=== PATIENT | male | born 1955 | race Caucasian/White ===

== ENCOUNTER 2025-03-22 21:14 | Inpatient (IN) ==
[2025-03-22 21:55] LABS: Hematocrit (blood only) 41.8 % (42.0-52.0); Hemoglobin 14.2 g/dl (14.0-18.0); Immature Granulocytes # (auto) 0.02 K/uL (0.01-0.20); Immature Granulocytes % (auto) 0.6 %; Mean Corpuscular Hemoglobin 28.3 pg (25.0-34.0); Mean Corpuscular Volume 83.4 fL (80.0-100.0); Platelet Count 114 K/uL (130-400); RDW Standard Deviation 40.8 fL (36.4-46.3); Red Blood Count 5.01 M/uL (4.70-6.10); White Blood Count 3.20 K/ul (4.8-10.8)
[2025-03-22] MEDS: SODIUM CHLORIDE 0.9% 1,000 ML IV ONE (21:57)
--- NOTE | 2025-03-22 22:13 | Emergency Department Note ---
Impression & Plan Generalized weakness, Dizziness, Fall, Elevated CPK, Lymphopenia, Thrombocytopenia, Elevated AST (SGOT) ED Provider Note NAME: ANDRE NJ AGE: 70 SEX: M : 1955 ARRIVES VIA: Ambulance INFORMANT: Patient ED PROVIDER(S): Jayson Gray MD CHIEF COMPLAINT: Fall, generalized weakness, dizziness PLAN: Disposition: Admit MEDICAL DECISION MAKING: The patient pleasant 70-year-old gentleman with a past medical history of hypertension who presents to the Emergency Department via EMS accompanied by his brother for evaluation of generalized weakness and dizziness/unsteadiness that has been worsening over the past several weeks culminating in a fall today where he felt he lost his balance and fell onto his knees outside and could not get up and so laid on the ground for over an hour. Patient was able to ultimately call family ember and his brother found him and called EMS. Patient denies any fevers, chills, cough congestion, chest pain or shortness of breath. He reports he has been having worsening dizziness/imbalance with generalized weakness but has yet to contact his primary care provider to reassess this. On evaluation the patient in no acute distress, afebrile with heart in the 110s and vital signs otherwise stable. He appears clinically dry. He has minor abrasions of bilateral knees and mild swelling of the anterior aspect of the left knee without gross deformity. Exhibits no focal neurologic deficits. EKG without overt acute ischemia. CXR negative for acute cardiopulmonary process per my personal preliminary review/interpretation. X-ray of the left knee also negative for fracture or dislocation per my preliminary independent interpretation. WBC 3.2K with lymphopenia 0.29K as well as thrombocytopenia with platelets of 114K without prior for comparison. Hemoglobin within normal limits. Chemistry without metabolic acidosis with bicarbonate of 22. Creatinine 1.45 without prior for comparison. Total bili 1.2 and AST 46, mildly above normal. CPK 320 in setting of the patient's downtime. High styptic 0.3-0.7, within normal limits. Lipase is normal. TSH within normal limits. UA with 1+ ketones consistent with the patient's clinically dry appearance. Otherwise no evidence of urinary infection. Medical alcohol was undetectable. Lyme screen was negative. Anaplasma and Babesia smear were negative. DNA testing is pending. CT of the head, C-spine and abdomen pelvis were obtained and per my preliminary independent or potation were negative for acute abnormalities. Given the patient's lymphopenia, thrombocytopenia and mild transaminitis in the setting of family report of tick exposures where his brother has been diagnosed with Lyme after having a tick and the patient also reports removing a tick 2 months ago we will proceed with empiric treatment for anaplasmosis at this time. Case was discussed with Dr. [facility] who will evaluate the patient for admission. CT imaging subsequently finalized and no acute abnormalities noted. Further management per admitting team. Triage Nursing notes reviewed and agree them. Prior/external medical records reviewed Vital Signs: reviewed Differential diagnosis: Infection, dehydration, metabolic abnormality, hypo/hyperglycemia, electrolyte disturbance, anemia, hypoxia, cardiac sources, intracerebral event, toxicologic, neurologic, as well as other pathologies. ER treatment provided: See below. Diagnostics interpreted by me: ECG: Sinus tachycardia, 112 bpm, first-degree AV block, no overt ST elevation or depression, QTc 442, QRS 88. Cardiac Monitoring: An order for continuous cardiac monitoring was placed and demonstrated Sinus tachycardia, 112 bpm, first-degree AV block, no ectopy. Laboratory studies: See below Imaging studies: See below Consultation(s): Case was discussed with Dr. [facility] who will evaluate the patient for admission. HPI: Per MDM. ROS: See above HPI for pertinent positives & negatives. A total of 10 systems reviewed and were otherwise negative. VITALS:See Below PHYSICAL EXAMINATION: GENERAL: Awake, alert, fatigued-appearing, in no distress, BMI 38.6. HENT: Normocephalic, atraumatic. Oropharynx with dry mucous membranes and otherwise unremarkable. EYES: Normal conjunctiva. Sclera non-icteric. EOMI. No nystamgus. PEARRL. NECK: Supple. No nuchal rigidity. FROM. No JVD. No midline tenderness to palpation or step-offs. RESPIRATORY: Clear to auscultation. CARDIAC: Tachycardic rate, normal rhythm. Extremities warm and well perfused. Pulses equal. ABDOMEN: Soft, non-distended. No tenderness to palpation. No rebound or guarding. No masses. MUSCULOSKELETAL: Chest examination reveals no tenderness. The back is symmetrical on inspection without obvious abnormality. No midline tenderness to palpation or step-offs. There is no CVA tenderness to palpation. Mild swelling of the left knee anteriorly without gross deformity. Full range of motion intact. Minor abrasions of bilateral knees. LOWER EXTREMITIES: Calves are equal size bilaterally and non-tender. No edema. No discoloration. NEURO: Cranial nerves II-XII grossly intact. 5/5 strength and SILT x 4 extremities. Cerebellar function intact including ceorei-dx-zdid, alternating palms, hojs-si-[id number]. SKIN: No rash or jaundice noted. Jayson Gray MD Past Med/Surg History Problem List (Updated 03/23/25 @ 01:47 by Jayson Gray MD) Elevated AST (SGOT) (Acute) Thrombocytopenia (Acute) Lymphopenia (Acute) Elevated CPK (Acute) Fall (Acute) Dizziness (Acute) Generalized weakness (Acute) Medical History Hypertension Social History Smoking Status: Former smoker Preferred Language: Persian Feels Safe at Home: Yes Home Meds Home Medications Medication Instructions Recorded Confirmed Lisinopril (Zestril) 20 mg PO DAILY ##0 03/12/07 Results & Data (ED) Vital Signs Vital Signs - 24 hr 03/22/25 21:14 03/22/25 21:26 03/22/25 21:31 Temperature 36.8 C Temperature Source Oral Pulse Rate 115 H 112 H Pulse Rate [Finger] 112 H Pulse Rhythm Pulse Rhythm [Finger] Regular Pulse Strength [Finger] Normal Respiratory Rate 18 18 Respiratory Effort / Characteristics Non-Labored Spontaneous Non-Labored Spontaneous Respiratory Depth Normal Normal Respiratory Pattern Regular Regular Blood Pressure 131/98 Blood Pressure [Right Arm] 131/98 Blood Pressure Mean 109 Blood Pressure Mean [Right Arm] 109 Blood Pressure Position [Right Arm] Lying Pulse Oximetry 96 94 Oxygen Delivery Method Room Air Room Air Sepsis Recent Fever Within 48 Hours No Sepsis New/Unexplained Change in Mental Status No Sepsis Action Taken by Nursing No Action Required 03/22/25 21:45 03/22/25 22:00 03/22/25 23:00 Temperature Temperature Source Pulse Rate 103 H Pulse Rate [Finger] 113 H 93 H Pulse Rhythm Regular Pulse Rhythm [Finger] Regular Regular Pulse Strength [Finger] Respiratory Rate 19 18 20 Respiratory Effort / Characteristics Non-Labored Spontaneous Non-Labored Spontaneous Respiratory Depth Normal Normal Respiratory Pattern Regular Regular Blood Pressure Blood Pressure [Right Arm] 108/72 147/82 H Blood Pressure Mean Blood Pressure Mean [Right Arm] 84 103 Blood Pressure Position [Right Arm] Pulse Oximetry 92 93 95 Oxygen Delivery Method Room Air Room Air Room Air Sepsis Recent Fever Within 48 Hours Sepsis New/Unexplained Change in Mental Status Sepsis Action Taken by Nursing 03/23/25 00:00 Temperature Temperature Source Pulse Rate Pulse Rate [Finger] 101 H Pulse Rhythm Pulse Rhythm [Finger] Regular Pulse Strength [Finger] Respiratory Rate 19 Respiratory Effort / Characteristics Non-Labored Spontaneous Respiratory Depth Normal Respiratory Pattern Regular Blood Pressure Blood Pressure [Right Arm] 118/79 Blood Pressure Mean Blood Pressure Mean [Right Arm] 92 Blood Pressure Position [Right Arm] Pulse Oximetry 95 Oxygen Delivery Method Room Air Sepsis Recent Fever Within 48 Hours Sepsis New/Unexplained Change in Mental Status Sepsis Action Taken by Nursing Laboratory Data Attestation: I reviewed the patient's lab results. 03/22/25 20:05 03/22/25 20:05 Lab Results 03/22/25 03/22/25 03/22/25 Range/Units 20:05 22:41 23:19 WBC 3.20 L (4.8-10.8) K/ul RBC 5.01 (4.70-6.10) M/uL Hgb 14.2 (14.0-18.0) g/dl Hct 41.8 L (42.0-52.0) % MCV 83.4 (80.0-100.0) fL MCH 28.3 (25.0-34.0) pg MCHC 34.0 (32.0-36.0) g/dL RDW Std Deviation 40.8 (36.4-46.3) fL RDW Coeff of Elena 13.4 (11.5-14.5) % Plt Count 114 L (130-400) K/uL MPV 11.9 (9.4-12.4) fL Immature Gran % (Auto) 0.6 % Neut % (Auto) 74.4 % Lymph % (Auto) 9.1 % Mclean % (Auto) 15.6 % Eos % (Auto) 0.0 % Baso % (Auto) 0.3 % Neut # (Auto) 2.38 (1.40-6.50) K/uL Lymph # (Auto) 0.29 L (1.20-3.40) K/uL Mclean # (Auto) 0.50 (0.11-0.59) K/uL Eos # (Auto) 0.00 (0.00-0.50) K/uL Baso # (Auto) 0.01 (0.00-0.20) K/uL Immature Gran # (Auto) 0.02 (0.01-0.20) K/uL PT 12.2 H (9.0-12.0) Seconds INR 1.2 H (0.9-1.1) Sodium 132 L (136-145) mmol/L Potassium 3.9 (3.5-5.1) mmol/L Chloride 94 L (98-107) mmol/L Carbon Dioxide 22 (21-32) mmol/L Anion Gap 16 H (3-11) BUN 25 H (6-23) mg/dl Creatinine 1.45 H (0.6-1.4) mg/dl Est Cr Clr Drug Dosing 63.0 ml/min eGFR 51.52 BUN/Creatinine Ratio 17.2 (10-20) Glucose 197 H (70-99(Fasting)) mg/dl Calcium 9.7 (8.6-10.3) mg/dl Phosphorus 3.5 (2.5-4.9) mg/dl Magnesium 1.9 (1.7-2.4) mg/dl Total Bilirubin 1.2 H (0.2-1.0) mg/dl AST 46 H (13-39) U/L ALT 43 (7-52) U/L Alkaline Phosphatase 63 (34-104) U/L Total Creatine Kinase 320 H (30-223) U/L Troponin I High Sens 13.7 (0-20) pg/ml Total Protein 7.8 (6.0-8.3) gm/dl Albumin 4.0 (3.4-5.0) gm/dl Globulin 3.8 (2.5-4.0) gm/dl Albumin/Globulin Ratio 1.1 (0.9-2) Lipase 64 (11-82) U/L TSH 2.612 (0.300-4.500) uIu/ml Urine Color Yellow Urine Appearance Clear (Clear) Urine pH 5.0 (4.5-7.5) Ur Specific [place] 1.020 (1.000-1.030) Urine Protein 1+ H (Negative) Urine Glucose (UA) 3+ H (Negative) Urine Ketones 1+ H (Negative) Urine Blood 2+ H (Negative) Urine Nitrite Negative (Negative) Urine Bilirubin Negative (Negative) Urine Urobilinogen Negative (Negative) Ur Leukocyte Esterase Negative (Negative) Urine WBC (Auto) 0-5 (0-5) /hpf Urine RBC (Auto) 0-2 (0-2) /hpf U Hyaline Cast (Auto) 3-5 H (0-2) /lpf U Epithel Cells (Auto) 0-2 (0-2) /hpf Urine Bacteria (Auto) None Seen (None Seen) Urine Comment Ethyl Alcohol mg/dL < 10.0 (<10.0) mg/dl Anaplasma Smear See Comment Babesia Smear See Comment Lyme Disease Screen Negative (Negative) Administered Medications Discontinued Medications Sodium Chloride (Nss) 1,000 mls @ 999 mls/hr IV .Q1H1M ONE Stop: 03/22/25 22:45 Last Infusion: 03/22/25 22:35 Dose: Infused Documented By: Admin: 03/22/25 21:57 Dose: 999 mls/hr Documented By: JOSE Acetaminophen (Ofirmev) 1,000 mg in 100 mls @ 400 mls/hr IV NOW STA Stop: 03/23/25 00:35 Last Admin: 03/23/25 01:19 Dose: 400 mls/hr Documented By: JOSE Imaging Data Radiologist's Impression: Chest X-Ray 03/22/25 21:45 Exam(s): XR CXR 1 VIEW EXAM: XR Chest, 1 View CLINICAL HISTORY: Reason for exam: Chest pain, nonspecific. TECHNIQUE: Frontal view of the chest. COMPARISON: No relevant prior studies available. FINDINGS: Lungs: No consolidation. No overt edema. Pleural space: No pleural effusion. No pneumothorax. Heart: Unremarkable. No cardiomegaly. IMPRESSION: No acute cardiopulmonary abnormality. Electronically signed by: Jean Silveira MD 03/22/25 23:22 PM Abdomen/Pelvis CT 03/22/25 23:03 Exam(s): CT ABDOMEN + PELVIS Without Contrast EXAM: CT Abdomen and Pelvis Without Intravenous Contrast CLINICAL HISTORY: Reason for exam: weakness fall. TECHNIQUE: Axial computed tomography images of the abdomen and pelvis without intravenous contrast. CTDI is 35.08 mGy and DLP is 2985.56 mGy-cm. Automated exposure control was utilized for the study. A dose lowering technique was utilized adhering to the principles of ALARA. COMPARISON: No relevant prior studies available. FINDINGS: Lung bases: Unremarkable. No mass. No consolidation. ABDOMEN: Liver: Hepatomegaly. Gallbladder and bile ducts: Unremarkable. No calcified stones. No ductal dilation. Pancreas: Unremarkable. No ductal dilation. Spleen: Splenomegaly. Adrenals: Unremarkable. No mass. Kidneys and ureters: Unremarkable. No obstructing stones. No hydronephrosis. Stomach and bowel: Unremarkable. No obstruction. No mucosal thickening. PELVIS: Appendix: No findings to suggest acute appendicitis. Bladder: Mild distention of the urinary bladder. No stones. Reproductive: Unremarkable as visualized. ABDOMEN and PELVIS: Intraperitoneal space: Unremarkable. No free air. No significant fluid collection. Bones/joints: No acute fracture. No dislocation. Soft tissues: Unremarkable. Vasculature: Unremarkable. No abdominal aortic aneurysm. Lymph nodes: Unremarkable. No enlarged lymph nodes. IMPRESSION: No acute findings in the abdomen or pelvis. Hepatosplenomegaly Electronically signed by: Hector Michael MD 03/23/25 00:[address] 03/22/25 23:03 Exam(s): CT C SPINE EXAM: CT Cervical Spine Without Intravenous Contrast CLINICAL HISTORY: Reason for exam: weakness fall. OTHER: Other Notes: L sided pain, N/V TECHNIQUE: Axial computed tomography images of the cervical spine without intravenous contrast. CTDI is 35.08 mGy and DLP is 2985.56 mGy-cm. Automated exposure control was utilized for the study. A dose lowering technique was utilized adhering to the principles of ALARA. COMPARISON: No relevant prior studies available. FINDINGS: No fracture or subluxations are noted. The vertebral body heights and alignment are preserved. No prevertebral soft tissue swelling. Note is made of multilevel cervical spondylosis with varying degrees of central canal and foramina stenoses. IMPRESSION: 1. No cervical fractures. 2. Cervical spondylosis with varying degrees of central canal and foramina stenoses. Electronically signed by: Hector Michael MD 03/23/25 00:[address] 03/22/25 23:03 Exam(s): CT HEAD Without Contrast EXAM: CT Head Without Intravenous Contrast CLINICAL HISTORY: Reason for exam: weakness fall. TECHNIQUE: Axial computed tomography images of the head/brain without intravenous contrast. CTDI is 35.08 mGy and DLP is 2985.56 mGy-cm. Automated exposure control was utilized for the study. A dose lowering technique was utilized adhering to the principles of ALARA. COMPARISON: No relevant prior studies available. FINDINGS: Brain: Unremarkable. No hemorrhage. No significant white matter disease. No edema. Ventricles: Unremarkable. No ventriculomegaly. Bones/joints: Unremarkable. No acute fracture. Soft tissues: Unremarkable. Sinuses: Unremarkable as visualized. No acute sinusitis. Mastoid air cells: Unremarkable as visualized. No mastoid effusion. IMPRESSION: Normal head/brain CT. Electronically signed by: Hector Michael MD 03/23/25 00:30 AM Knee X-Ray 03/22/25 23:07 Exam(s): XR LEFT KNEE, 3 views EXAM: XR Left Knee, 3 Views CLINICAL HISTORY: Reason for exam: pain fall. TECHNIQUE: Three views of the left knee. COMPARISON: No relevant prior studies available. FINDINGS: Bones/joints: Unremarkable. No acute fracture. No dislocation. Soft tissues: Unremarkable. IMPRESSION: Normal left knee x-rays. Electronically signed by: Hector Michael MD 03/23/25 00:27 AM Discharge Plan Visit Data Chief Complaint: Weakness Stated Complaint: FALL, WEAKNESS ED Provider: Jayson Gray Discharge Problem: Generalized weakness, Dizziness, Fall, Elevated CPK, Lymphopenia, Thrombocytopenia, Elevated AST (SGOT) Patient Disposition: Admitted As Inpatient Condition: Fair Forms [facility] Prescriptions Prescriptions: No Action Lisinopril (Zestril) 20 MG tablet 20 mg PO DAILY Qty: 0 Referrals Referrals: PCP,NO [Physician] - Discharge Problem: Fall Qualifiers: Encounter type: initial encounter Qualified Code(s): W19.XXXA - Unspecified fall, initial encounter
[2025-03-22 22:14] LABS: Alanine Aminotransferase 43.0 U/L (7-52); Albumin Globulin Ratio 1.1 (0.9-2); Albumin Level 4.0 gm/dl (3.4-5.0); Alkaline Phosphatase 63.0 U/L (34-104); Anion Gap 16.0 (3-11); Bilirubin,Total 1.2 mg/dl (0.2-1.0); Blood Urea Nitrogen 25.0 mg/dl (6-23); Calcium 9.7 mg/dl (8.6-10.3); Carbon Dioxide 22.0 mmol/L (21-32); Chloride 94.0 mmol/L (98-107); Creatine Kinase 320.0 U/L (30-223); Creatinine Clr Calc Pharmacy 63.0 ml/min; Globulin 3.8 gm/dl (2.5-4.0); Glucose 197.0 mg/dl (70-99(Fasting)); Lipase 64.0 U/L (11-82); Magnesium 1.9 mg/dl (1.7-2.4); Potassium 3.9 mmol/L (3.5-5.1); Sodium 132.0 mmol/L (136-145); Total Protein 7.8 gm/dl (6.0-8.3)
[2025-03-22 22:22] LABS: INR 1.2 (0.9-1.1); Prothrombin Time 12.2 Seconds (9.0-12.0)
[2025-03-22 22:30] LABS: Thyroid Stimulating Hormone 2.612 uIu/ml (0.300-4.500)
[2025-03-22 22:58] LABS: Appearance Urine Clear (Clear); Bacteria Urine Automated None Seen (None Seen); Epithelial Cell Urine Auto 0-2 /hpf (0-2); Glucose Urine UA 3+ (Negative); RBC Urine Automated 0-2 /hpf (0-2); WBC Urine Automated 0-5 /hpf (0-5)
--- NOTE | 2025-03-22 23:23 | XRay Report ---
Exam(s): XR CXR 1 VIEW EXAM: XR Chest, 1 View CLINICAL HISTORY: Reason for exam: Chest pain, nonspecific. TECHNIQUE: Frontal view of the chest. COMPARISON: No relevant prior studies available. FINDINGS: Lungs: No consolidation. No overt edema. Pleural space: No pleural effusion. No pneumothorax. Heart: Unremarkable. No cardiomegaly. IMPRESSION: No acute cardiopulmonary abnormality. Electronically signed by: Jean Silveira MD 03/22/25 23:22 PM
--- NOTE | 2025-03-23 00:27 | XRay Report ---
Exam(s): XR LEFT KNEE, 3 views EXAM: XR Left Knee, 3 Views CLINICAL HISTORY: Reason for exam: pain fall. TECHNIQUE: Three views of the left knee. COMPARISON: No relevant prior studies available. FINDINGS: Bones/joints: Unremarkable. No acute fracture. No dislocation. Soft tissues: Unremarkable. IMPRESSION: Normal left knee x-rays. Electronically signed by: Hector Michael MD 03/23/25 00:27 AM
--- NOTE | 2025-03-23 00:31 | CT Scan Report ---
Exam(s): CT HEAD Without Contrast EXAM: CT Head Without Intravenous Contrast CLINICAL HISTORY: Reason for exam: weakness fall. TECHNIQUE: Axial computed tomography images of the head/brain without intravenous contrast. CTDI is 35.08 mGy and DLP is 2985.56 mGy-cm. Automated exposure control was utilized for the study. A dose lowering technique was utilized adhering to the principles of ALARA. COMPARISON: No relevant prior studies available. FINDINGS: Brain: Unremarkable. No hemorrhage. No significant white matter disease. No edema. Ventricles: Unremarkable. No ventriculomegaly. Bones/joints: Unremarkable. No acute fracture. Soft tissues: Unremarkable. Sinuses: Unremarkable as visualized. No acute sinusitis. Mastoid air cells: Unremarkable as visualized. No mastoid effusion. IMPRESSION: Normal head/brain CT. Electronically signed by: Hector Michael MD 03/23/25 00:30 AM
--- NOTE | 2025-03-23 00:35 | CT Scan Report ---
Exam(s): CT ABDOMEN + PELVIS Without Contrast EXAM: CT Abdomen and Pelvis Without Intravenous Contrast CLINICAL HISTORY: Reason for exam: weakness fall. TECHNIQUE: Axial computed tomography images of the abdomen and pelvis without intravenous contrast. CTDI is 35.08 mGy and DLP is 2985.56 mGy-cm. Automated exposure control was utilized for the study. A dose lowering technique was utilized adhering to the principles of ALARA. COMPARISON: No relevant prior studies available. FINDINGS: Lung bases: Unremarkable. No mass. No consolidation. ABDOMEN: Liver: Hepatomegaly. Gallbladder and bile ducts: Unremarkable. No calcified stones. No ductal dilation. Pancreas: Unremarkable. No ductal dilation. Spleen: Splenomegaly. Adrenals: Unremarkable. No mass. Kidneys and ureters: Unremarkable. No obstructing stones. No hydronephrosis. Stomach and bowel: Unremarkable. No obstruction. No mucosal thickening. PELVIS: Appendix: No findings to suggest acute appendicitis. Bladder: Mild distention of the urinary bladder. No stones. Reproductive: Unremarkable as visualized. ABDOMEN and PELVIS: Intraperitoneal space: Unremarkable. No free air. No significant fluid collection. Bones/joints: No acute fracture. No dislocation. Soft tissues: Unremarkable. Vasculature: Unremarkable. No abdominal aortic aneurysm. Lymph nodes: Unremarkable. No enlarged lymph nodes. IMPRESSION: No acute findings in the abdomen or pelvis. Hepatosplenomegaly Electronically signed by: Hector Michael MD 03/23/25 00:34 AM
--- NOTE | 2025-03-23 00:36 | CT Scan Report ---
Exam(s): CT C SPINE EXAM: CT Cervical Spine Without Intravenous Contrast CLINICAL HISTORY: Reason for exam: weakness fall. OTHER: Other Notes: L sided pain, N/V TECHNIQUE: Axial computed tomography images of the cervical spine without intravenous contrast. CTDI is 35.08 mGy and DLP is 2985.56 mGy-cm. Automated exposure control was utilized for the study. A dose lowering technique was utilized adhering to the principles of ALARA. COMPARISON: No relevant prior studies available. FINDINGS: No fracture or subluxations are noted. The vertebral body heights and alignment are preserved. No prevertebral soft tissue swelling. Note is made of multilevel cervical spondylosis with varying degrees of central canal and foramina stenoses. IMPRESSION: 1. No cervical fractures. 2. Cervical spondylosis with varying degrees of central canal and foramina stenoses. Electronically signed by: Hector Michael MD 03/23/25 00:36 AM
--- NOTE | 2025-03-23 01:03 | History & Physical Report ---
Date of Service March 23, 2025 Assessment & Plan (1) Severe sepsis: Plan: Assessment and plan below following discussion of case with ED provider and reviewing patient history/pertinent normal/abnormal diagnostic test results. Severe sepsis SIRS plus ARF Possible tickborne infection Leukopenia and thrombocytopenia possibly from tickborne infection hx nonobstructive CAD second-degree AV Mobitz type I block hypertension, stable hyperlipidemia, on statin Rx COPD as per records, not in acute exacerbation MASLD, no overt decompensation DM2 on oral medications, suboptimal control as of recent hemoglobin A1c of 7.9 last December 2024 Bladder cancer status post surgery past tobacco abuse Admit to med/tele CS, Doxycycline Follow tick panel results Monitor creatinine response to IVF, hold lisinopril/home diuretic Rx until creatinine back to baseline Basal bolus insulin, ISS goal of 110-140, carb count coverage PT OT eval once medically stable DVT prophylaxis. SCDs Re: Thrombocytopenia Full code Text document was generated using etrigg voice recognition software. It may contain grammatical or spelling errors. Kindly contact undersigned for clarification of any documentation item in question. History of Present Illness Chief Complaint: Bilateral leg weakness Primary Care Provider: Francia Martínez MD History obtained from patient and records. Medical history significant for nonobstructive CAD, second-degree AV Mobitz type I block, hypertension, hyperlipidemia, COPD as per records, mild MEHREEN, MASLD, DM2 on oral medications, bladder cancer status post surgery, Lyme disease status post Rx, GERD, past tobacco abuse. Patient noted worsening bilateral leg weakness over the last few weeks. Not sure about tick bites. Lightheadedness described as dizziness without headache symptoms. Denies chest pain, SOB, cough symptoms, abdominal pain, syncope. No unusual headache or neck or back pain. Patient having trouble standing up for a long time. IV doxycycline administered at the ER. 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 Allergies Allergy/AdvReac Type Severity Reaction Status Date / Time empagliflozin Allergy Mild Rash Verified 03/23/25 06:12 [From Jardiance] piroxicam AdvReac Mild Diarrhea Verified 03/23/25 06:12 iv dye Allergy Mild rash Uncoded 03/23/25 06:11 Home Medications Medication Instructions Recorded Confirmed Type Lisinopril (Zestril) 20 mg PO DAILY ##0 03/12/07 History albuterol sulfate 90 mcg/actuation inhalation 03/23/25 History aerosol inhaler budesonide-formoterol HFA 160 inhalation AMHS 03/23/25 History mcg-4.5 mcg/actuation aerosol inhaler furosemide 40 mg tablet 40 mg DAILY 03/23/25 History lisinopril 40 mg tablet 40 mg DAILY 03/23/25 History metformin 500 mg tablet,extended 500 mg PO BID 03/23/25 History release 24 hr metoprolol tartrate 25 mg tablet 25 mg 03/23/25 History potassium chloride 10 mEq 10 meq PO [id number] 03/23/25 History tablet,extended release rosuvastatin 20 mg tablet 20 mg DAILY 03/23/25 History Past Med/Surg History Problem List (Updated 03/23/25 @ 07:04 by Miguel Angel Kaplan MD) Severe sepsis Elevated AST (SGOT) (Acute) Thrombocytopenia (Acute) Lymphopenia (Acute) Elevated CPK (Acute) Fall (Acute) Dizziness (Acute) Generalized weakness (Acute) Medical History Hypertension Social History Smoking Status: Former smoker Hx Alcohol Use: No Hx Substance Use: Yes Preferred Language: Lithuanian Communication Ability: Effective Director External Communications Required: No Beliefs That Will Affect Care: None Current Living Situation: Alone Feels Safe at Home: Yes Safety Concerns: Feels Safe At This Time Assistive Devices: Cane and Glasses Review of Systems Review of Systems: As per HPI, all other systems reviewed and negative Physical Exam Physical Exam: GENERAL: Comfortable, obese, slightly anxious, no respiratory distress SKIN: Normal color, warm HEENT: Alopecia, bespectacled, pink palpebral conjunctivae, no ptosis, dry buccal mucosa NECK : Supple, no tenderness CHEST : CTA, no tenderness HEART : Tachycardic, no obvious murmurs ABDOMEN: Some distention, nontender EXTREMITIES : Bilateral LE swelling without tenderness, crusty wound LLE, palpable pulses, no other conspicuous deformities noted NEUROLOGIC : Coherent, no facial asymmetry, no other gross focality Results & Data Results & Data Vital Signs (Past 12 Hours) Vital Signs Temp Pulse Pulse Resp BP BP Pulse Ox 03/23/25 00:00 101 H 19 118/79 95 03/22/25 23:00 93 H 20 147/82 H 95 03/22/25 22:00 113 H 18 108/72 93 03/22/25 21:45 103 H 19 92 03/22/25 21:31 112 H 18 131/98 94 03/22/25 21:26 112 H 03/22/25 21:14 36.8 C 115 H 18 131/98 96 O2 Del Method 03/23/25 00:00 Room Air 03/22/25 23:00 Room Air 03/22/25 22:00 Room Air 03/22/25 21:45 Room Air 03/22/25 21:31 Room Air 03/22/25 21:26 03/22/25 21:14 Room Air Laboratory Results Laboratory Results WBC 3.20 K/ul (4.8-10.8) L 03/22/25 20:05 RBC 5.01 M/uL (4.70-6.10) 03/22/25 20:05 Hgb 14.2 g/dl (14.0-18.0) 03/22/25 20:05 Hct 41.8 % (42.0-52.0) L 03/22/25 20:05 MCV 83.4 fL (80.0-100.0) 03/22/25 20:05 MCH 28.3 pg (25.0-34.0) 03/22/25 20:05 MCHC 34.0 g/dL (32.0-36.0) 03/22/25 20:05 RDW Std Deviation 40.8 fL (36.4-46.3) 03/22/25 20:05 RDW Coeff of Elena 13.4 % (11.5-14.5) 03/22/25 20:05 Plt Count 114 K/uL (130-400) L 03/22/25 20:05 MPV 11.9 fL (9.4-12.4) 03/22/25 20:05 Immature Gran % (Auto) 0.6 % 03/22/25 20:05 Neut % (Auto) 74.4 % 03/22/25 20:05 Lymph % (Auto) 9.1 % 03/22/25 20:05 [place] % (Auto) 15.6 % 03/22/25 20:05 Eos % (Auto) 0.0 % 03/22/25 20:05 Baso % (Auto) 0.3 % 03/22/25 20:05 Neut # (Auto) 2.38 K/uL (1.40-6.50) 03/22/25 20:05 Lymph # (Auto) 0.29 K/uL (1.20-3.40) L 03/22/25 20:05 [place] # (Auto) 0.50 K/uL (0.11-0.59) 03/22/25 20:05 Eos # (Auto) 0.00 K/uL (0.00-0.50) 03/22/25 20:05 Baso # (Auto) 0.01 K/uL (0.00-0.20) 03/22/25 20:05 Immature Gran # (Auto) 0.02 K/uL (0.01-0.20) 03/22/25 20:05 PT 12.2 Seconds (9.0-12.0) H 03/22/25 20:05 INR 1.2 (0.9-1.1) H 03/22/25 20:05 Sodium 132 mmol/L (136-145) L 03/22/25 20:05 Potassium 3.9 mmol/L (3.5-5.1) 03/22/25 20:05 Chloride 94 mmol/L (98-107) L 03/22/25 20:05 Carbon Dioxide 22 mmol/L (21-32) 03/22/25 20:05 Anion Gap 16 (3-11) H 03/22/25 20:05 BUN 25 mg/dl (6-23) H 03/22/25 20:05 Creatinine 1.45 mg/dl (0.6-1.4) H 03/22/25 20:05 Est Cr Clr Drug Dosing 63.0 ml/min 03/22/25 20:05 eGFR 51.52 03/22/25 20:05 BUN/Creatinine Ratio 17.2 (10-20) 03/22/25 20:05 Glucose 197 mg/dl (70-99(Fasting)) H 03/22/25 20:05 Calcium 9.7 mg/dl (8.6-10.3) 03/22/25 20:05 Phosphorus 3.5 mg/dl (2.5-4.9) 03/22/25 20:05 Magnesium 1.9 mg/dl (1.7-2.4) 03/22/25 20:05 Total Bilirubin 1.2 mg/dl (0.2-1.0) H 03/22/25 20:05 AST 46 U/L (13-39) H 03/22/25 20:05 ALT 43 U/L (7-52) 03/22/25 20:05 Alkaline Phosphatase 63 U/L (34-104) 03/22/25 20:05 Total Creatine Kinase 320 U/L (30-223) H 03/22/25 20:05 Troponin I High Sens 13.7 pg/ml (0-20) 03/22/25 20:05 Total Protein 7.8 gm/dl (6.0-8.3) 03/22/25 20:05 Albumin 4.0 gm/dl (3.4-5.0) 03/22/25 20:05 Globulin 3.8 gm/dl (2.5-4.0) 03/22/25 20:05 Albumin/Globulin Ratio 1.1 (0.9-2) 03/22/25 20:05 Lipase 64 U/L (11-82) 03/22/25 20:05 TSH 2.612 uIu/ml (0.300-4.500) 03/22/25 20:05 Urine Color Yellow 03/22/25 22:41 Urine Appearance Clear (Clear) 03/22/25 22: Urine pH 5.0 (4.5-7.5) 03/22/25 22:41 Ur Specific [place] 1.020 (1.000-1.030) 03/22/25 22: Urine Protein 1+ (Negative) H 03/22/25 22: Urine Glucose (UA) 3+ (Negative) H 03/22/25 22: Urine Ketones 1+ (Negative) H 03/22/25 22: Urine Blood 2+ (Negative) H 03/22/25 22:41 Urine Nitrite Negative (Negative) 03/22/25 22: Urine Bilirubin Negative (Negative) 03/22/25 22: Urine Urobilinogen Negative (Negative) 03/22/25 22: Ur Leukocyte Esterase Negative (Negative) 03/22/25 22:41 Urine WBC (Auto) 0-5 /hpf (0-5) 03/22/25 22:41 Urine RBC (Auto) 0-2 /hpf (0-2) 03/22/25 22:41 U Hyaline Cast (Auto) 3-5 /lpf (0-2) H 03/22/25 22:41 U Epithel Cells (Auto) 0-2 /hpf (0-2) 03/22/25 22:41 Urine Bacteria (Auto) None Seen (None Seen) 03/22/25 22:41 Urine Comment 03/22/25 22:41 Ethyl Alcohol mg/dL < 10.0 mg/dl (<10.0) 03/22/25 23:19 Anaplasma Smear See Comment 03/22/25 20:05 Babesia Smear See Comment 03/22/25 20:05 Lyme Disease Screen Negative (Negative) 03/22/25 23:19 Impressions Chest X-Ray 03/22/25 21:45 Exam(s): XR CXR 1 VIEW EXAM: XR Chest, 1 View CLINICAL HISTORY: Reason for exam: Chest pain, nonspecific. TECHNIQUE: Frontal view of the chest. COMPARISON: No relevant prior studies available. FINDINGS: Lungs: No consolidation. No overt edema. Pleural space: No pleural effusion. No pneumothorax. Heart: Unremarkable. No cardiomegaly. IMPRESSION: No acute cardiopulmonary abnormality. Electronically signed by: Jean Silveira MD 03/22/25 23:22 PM Abdomen/Pelvis CT 03/22/25 23:03 Exam(s): CT ABDOMEN + PELVIS Without Contrast EXAM: CT Abdomen and Pelvis Without Intravenous Contrast CLINICAL HISTORY: Reason for exam: weakness fall. TECHNIQUE: Axial computed tomography images of the abdomen and pelvis without intravenous contrast. CTDI is 35.08 mGy and DLP is 2985.56 mGy-cm. Automated exposure control was utilized for the study. A dose lowering technique was utilized adhering to the principles of ALARA. COMPARISON: No relevant prior studies available. FINDINGS: Lung bases: Unremarkable. No mass. No consolidation. ABDOMEN: Liver: Hepatomegaly. Gallbladder and bile ducts: Unremarkable. No calcified stones. No ductal dilation. Pancreas: Unremarkable. No ductal dilation. Spleen: Splenomegaly. Adrenals: Unremarkable. No mass. Kidneys and ureters: Unremarkable. No obstructing stones. No hydronephrosis. Stomach and bowel: Unremarkable. No obstruction. No mucosal thickening. PELVIS: Appendix: No findings to suggest acute appendicitis. Bladder: Mild distention of the urinary bladder. No stones. Reproductive: Unremarkable as visualized. ABDOMEN and PELVIS: Intraperitoneal space: Unremarkable. No free air. No significant fluid collection. Bones/joints: No acute fracture. No dislocation. Soft tissues: Unremarkable. Vasculature: Unremarkable. No abdominal aortic aneurysm. Lymph nodes: Unremarkable. No enlarged lymph nodes. IMPRESSION: No acute findings in the abdomen or pelvis. Hepatosplenomegaly Electronically signed by: Hector Michael MD 03/23/25 00:[address] 03/22/25 23:03 Exam(s): CT C SPINE EXAM: CT Cervical Spine Without Intravenous Contrast CLINICAL HISTORY: Reason for exam: weakness fall. OTHER: Other Notes: L sided pain, N/V TECHNIQUE: Axial computed tomography images of the cervical spine without intravenous contrast. CTDI is 35.08 mGy and DLP is 2985.56 mGy-cm. Automated exposure control was utilized for the study. A dose lowering technique was utilized adhering to the principles of ALARA. COMPARISON: No relevant prior studies available. FINDINGS: No fracture or subluxations are noted. The vertebral body heights and alignment are preserved. No prevertebral soft tissue swelling. Note is made of multilevel cervical spondylosis with varying degrees of central canal and foramina stenoses. IMPRESSION: 1. No cervical fractures. 2. Cervical spondylosis with varying degrees of central canal and foramina stenoses. Electronically signed by: Hector Michael MD 03/23/25 00:[address] 03/22/25 23:03 Exam(s): CT HEAD Without Contrast EXAM: CT Head Without Intravenous Contrast CLINICAL HISTORY: Reason for exam: weakness fall. TECHNIQUE: Axial computed tomography images of the head/brain without intravenous contrast. CTDI is 35.08 mGy and DLP is 2985.56 mGy-cm. Automated exposure control was utilized for the study. A dose lowering technique was utilized adhering to the principles of ALARA. COMPARISON: No relevant prior studies available. FINDINGS: Brain: Unremarkable. No hemorrhage. No significant white matter disease. No edema. Ventricles: Unremarkable. No ventriculomegaly. Bones/joints: Unremarkable. No acute fracture. Soft tissues: Unremarkable. Sinuses: Unremarkable as visualized. No acute sinusitis. Mastoid air cells: Unremarkable as visualized. No mastoid effusion. IMPRESSION: Normal head/brain CT. Electronically signed by: Hector Michael MD 03/23/25 00:30 AM Knee X-Ray 03/22/25 23:07 Exam(s): XR LEFT KNEE, 3 views EXAM: XR Left Knee, 3 Views CLINICAL HISTORY: Reason for exam: pain fall. TECHNIQUE: Three views of the left knee. COMPARISON: No relevant prior studies available. FINDINGS: Bones/joints: Unremarkable. No acute fracture. No dislocation. Soft tissues: Unremarkable. IMPRESSION: Normal left knee x-rays. Electronically signed by: Hector Michael MD 03/23/25 00:27 AM Diagnostic Findings EKG as per my interpretation :Rate 110, junctional rhythm, no ischemia
[2025-03-23] MEDS: ACETAMINOPHEN 1,000 MG/100 ML VIAL IV STA (01:19)
[2025-03-23] MEDS: LANTUS PER UNIT CHARGE SQ SCH (02:20)
[2025-03-23] MEDS: DOXYCYCLINE HYCLATE 100 MG in DEXTROSE 5% MINI-B 100 ML IV STA (02:26)
[2025-03-23 03:08] LABS: Alanine Aminotransferase 37.0 U/L (7-52); Albumin Globulin Ratio 1.0 (0.9-2); Albumin Level 3.2 gm/dl (3.4-5.0); Alkaline Phosphatase 50.0 U/L (34-104); Anion Gap 11.0 (3-11); Bilirubin,Total 1.0 mg/dl (0.2-1.0); Blood Urea Nitrogen 24.0 mg/dl (6-23); Calcium 8.4 mg/dl (8.6-10.3); Carbon Dioxide 21.0 mmol/L (21-32); Chloride 99.0 mmol/L (98-107); Creatinine Clr Calc Pharmacy 69.2 ml/min; Globulin 3.3 gm/dl (2.5-4.0); Glucose 235.0 mg/dl (70-99(Fasting)); Potassium 3.7 mmol/L (3.5-5.1); Sodium 131.0 mmol/L (136-145); Total Protein 6.5 gm/dl (6.0-8.3)
[2025-03-23 03:11] LABS: Hematocrit (blood only) 35.2 % (42.0-52.0); Hemoglobin 12.0 g/dl (14.0-18.0); Immature Granulocytes # (auto) 0.01 K/uL (0.01-0.20); Immature Granulocytes % (auto) 0.5 %; Mean Corpuscular Hemoglobin 28.1 pg (25.0-34.0); Mean Corpuscular Volume 82.4 fL (80.0-100.0); Platelet Count 101 K/uL (130-400); RDW Standard Deviation 39.8 fL (36.4-46.3); Red Blood Count 4.27 M/uL (4.70-6.10); White Blood Count 2.05 K/ul (4.8-10.8)
[2025-03-23] MEDS: POTASSIUM CHLORIDE 10 MEQ in LACTATED RINGER'S 1,000 ML IV ONE (03:30)
[2025-03-23] MEDS: MAGNESIUM SULFATE / D5W 1 GM/100 ML BAG IV ONE (03:30)
[2025-03-23] MEDS ORDERED: PROMETHAZINE 6.25 MG/50.25 ML BAG IV PRN (03:48)
[2025-03-23] MEDS ORDERED: CARBOHYDRATES FOR HYPOGLYCEMIA PO PRN (05:07)
[2025-03-23] MEDS ORDERED: GLUCOSE 10 TAB/TUBE PO PRN (05:07)
[2025-03-23] MEDS ORDERED: DEXTROSE 50% 50 ML SYRINGE IV PRN (05:07)
[2025-03-23] MEDS ORDERED: GLUCOSE 40% GEL 15 GM TUBE PO PRN (05:07)
[2025-03-23] MEDS ORDERED: GLUCAGON FOR INJ 1 MG VIAL SQ PRN (05:07)
[2025-03-23] MEDS: INSULIN ASPART PER UNIT CHARGE SC SCH (05:56)
[2025-03-23 08:37] LABS: Sodium 134 mmol/L (136-145)
[2025-03-23 08:58] LABS: Creatine Kinase 2335 U/L (30-223)
[2025-03-23] MEDS: METOPROLOL TARTRATE 25 MG TAB PO SCH (10:24)
[2025-03-23] MEDS ORDERED: Nursing to Pharmacy Communication SCH (10:30)
[2025-03-23] MEDS ORDERED: ALBUTEROL HFA 8 GM INHALER INH PRN (12:07)
[2025-03-23] MEDS: LACTATED RINGER'S 1,000 ML IV SCH (12:59)
--- NOTE | 2025-03-23 14:18 | Hospitalist Progress Note ---
Date of Service March 23, 2025 Assessment & Plan (1) Severe sepsis: Plan: Acute rhabdomyolysis Acute kidney injury due to above Generalized weakness --CK:2335 -- Baseline creatinine 1.0 --Cr: 1.4>1.3 Hold statin Continue IV fluids Monitor CK levels PT OT, fall precautions Monitor renal function Avoid nephrotoxic agents as able Hold lisinopril, Lasix, metformin Possible sepsis Leukopenia, thrombocytopenia Suspected tickborne illness Lyme screen negative Peripheral smear showed no signs of intracytoplasmic inclusions Tickborne serology pending -- Blood cultures pending Chest x-ray, UA not suggestive of infection Empirically on doxycycline Monitor CBC Hypertension Hold lisinopril Continue metoprolol Monitor blood pressure DM Type II: Will hold oral diabetic meds Last A1c: 7.9 Continue insulin while hospitalized Monitor blood glucose levels Hyperlipidemia Hold statin due to rhabdo COPD No signs of exacerbation Continue home inhalers Other chronic conditions Nonobstructive CAD Second-degree AV Mobitz type I block MASLD, no overt decompensation Bladder cancer S/P Surgery Past tobacco abuse Continue home medications as able DVT Px: SCDs Re: Thrombocytopenia Code Status Full code Admission and Anticipated Discharge Date Admission Date: March 23, 2025 Subjective Patient is seen and examined at bedside States having generalized weakness Also reports chronic dyspnea on exertion and intermittent dizziness Denies any chest pain, nausea, vomiting, abdominal pain Admits to have some balance issues with ambulation which he attributes to weakness Review of Systems Review of Systems: All systems reviewed & are unremarkable except as noted in Subjective Physical Exam Physical Exam: Physical Exam: Vitals signs as noted above General Appearance:Obese, no apparent distress Head: normocephalic, Atraumatic Eyes: normal inspection, EOMI Neck: supple, Trachea midline Respiratory/Chest: Normal breath sounds, CTA, No accessory muscle use Cardiovascular: S1, S2, No murmur Abdomen/GI:Soft, Non tender, +Protuberant, Bowel sounds present Extremities/Musculoskeletal:normal inspection, 1+ LE edema Neurologic/Psych:AAOX3, grossly no focal neurological deficits Skin: normal color, warm Results & Data Results & Data Vital Signs (Past 12 Hours) Vital Signs Temp Pulse Pulse Resp BP BP BP 03/23/25 12:01 36.8 C 99 H 20 145/80 H 03/23/25 11:31 03/23/25 08:22 37.0 C 114 H 18 138/81 03/23/25 07:28 108 H 03/23/25 04:55 107 H 03/23/25 04:45 03/23/25 04:45 36.5 C 110 H 20 145/84 H 03/23/25 04:24 95 H 16 105/76 03/23/25 03:00 105 H 18 102/66 Pulse Ox O2 Del Method 03/23/25 12:01 94 Room Air 03/23/25 11:31 Room Air 03/23/25 08:22 97 Room Air 03/23/25 07:28 03/23/25 04:55 03/23/25 04:45 Room Air 03/23/25 04:45 98 Room Air 03/23/25 04:24 94 Room Air 03/23/25 03:00 93 Room Air Laboratory Results Short CBC 03/22/25 03/23/25 Range/Units 20:05 02:09 WBC 3.20 L 2.05 L (4.8-10.8) K/ul Hgb 14.2 12.0 L (14.0-18.0) g/dl Hct 41.8 L 35.2 L (42.0-52.0) % Plt Count 114 L 101 L (130-400) K/uL BMP 03/22/25 03/23/25 03/23/25 20:05 02:09 07:29 Sodium 132 L 131 L 134 L Potassium 3.9 3.7 Chloride 94 L 99 Carbon Dioxide 22 21 BUN 25 H 24 H Creatinine 1.45 H 1.32 Glucose 197 H 235 H Calcium 9.7 8.4 L Cardiac Enzymes 03/22/25 03/23/25 Range/Units 20:05 07:29 Total Creatine Kinase 320 H 2335 H (30-223) U/L Liver Function 03/22/25 03/23/25 Range/Units 20:05 02:09 Total Bilirubin 1.2 H 1.0 (0.2-1.0) mg/dl AST 46 H 51 H (13-39) U/L ALT 43 37 (7-52) U/L Alkaline Phosphatase 63 50 (34-104) U/L Albumin 4.0 3.2 L (3.4-5.0) gm/dl Urine 03/22/25 Range/Units 22:41 Urine Color Yellow Urine Appearance Clear (Clear) Urine pH 5.0 (4.5-7.5) Ur Specific [place] 1.020 (1.000-1.030) Urine Protein 1+ H (Negative) Urine Glucose (UA) 3+ H (Negative)
--- NOTE | 2025-03-23 15:50 | Electrocardiogram Report ---
Test Reason : Blood Pressure : */* mmHG Vent. Rate : 112 BPM Atrial Rate : * BPM P-R Int : * ms QRS Dur : 88 ms QT Int : 324 ms P-R-T Axes : * 7 24 degrees QTcB Int : 442 ms Sinus tachycardia with 1st degree AV block Possible Inferior infarct , age undetermined Abnormal ECG Confirmed by Torey Roach ([id number]) on 03/23/2025 3:49:28 PM Referred By: REFERRED SELF Confirmed By: Torey Roach
[2025-03-23] MEDS: ACETAMINOPHEN 500 MG TAB PO PRN (20:00)
[2025-03-23] MEDS: DOXYCYCLINE HYCLATE 100 MG CAP PO SCH (20:01)
[2025-03-24 07:22] LABS: Hematocrit (blood only) 33.8 % (42.0-52.0); Hemoglobin 11.3 g/dl (14.0-18.0); Mean Corpuscular Hemoglobin 27.8 pg (25.0-34.0); Mean Corpuscular Volume 83.3 fL (80.0-100.0); Platelet Count 100 K/uL (130-400); RDW Standard Deviation 40.8 fL (36.4-46.3); Red Blood Count 4.06 M/uL (4.70-6.10); White Blood Count 1.77 K/ul (4.8-10.8)
[2025-03-24 07:23] LABS: Immature Granulocytes # (auto) 0.00 K/uL (0.01-0.20); Immature Granulocytes % (auto) 0.0 %
[2025-03-24 07:27] LABS: Alanine Aminotransferase 45.0 U/L (7-52); Albumin Globulin Ratio 1.2 (0.9-2); Albumin Level 3.3 gm/dl (3.4-5.0); Alkaline Phosphatase 52.0 U/L (34-104); Anion Gap 8.0 (3-11); Bilirubin,Total 0.7 mg/dl (0.2-1.0); Blood Urea Nitrogen 20.0 mg/dl (6-23); Calcium 8.2 mg/dl (8.6-10.3); Carbon Dioxide 24.0 mmol/L (21-32); Chloride 103.0 mmol/L (98-107); Creatine Kinase 1946.0 U/L (30-223); Creatinine Clr Calc Pharmacy 90.1 ml/min; Globulin 2.8 gm/dl (2.5-4.0); Glucose 139.0 mg/dl (70-99(Fasting)); Magnesium 2.0 mg/dl (1.7-2.4); Potassium 3.7 mmol/L (3.5-5.1); Sodium 135.0 mmol/L (136-145); Total Protein 6.1 gm/dl (6.0-8.3)
[2025-03-24] MEDS: FLUTICASONE/VILANTEROL 200/25MCG 14 PUFFS/INHALER INH SCH (08:56)
[2025-03-24] MEDS: ASPIRIN 81 MG ECTAB PO SCH (08:58)
[2025-03-24] MEDS ORDERED: ROSUVASTATIN CALCIUM 20 MG TAB PO SCH (09:00)
[2025-03-24] MEDS: LACTATED RINGER'S 1,000 ML IV SCH (09:13)
--- NOTE | 2025-03-24 15:18 | Hospitalist Progress Note ---
Date of Service March 24, 2025 Assessment & Plan (1) Severe sepsis: Plan: Acute rhabdomyolysis Acute kidney injury due to above Generalized weakness --CK:2335 -- Baseline creatinine 1.0 --Cr: 1.4>1.3>1.0 Hold statin Continue IV fluids Monitor CK levels:2335>1946 PT OT, fall precautions Monitor renal function Avoid nephrotoxic agents as able Hold lisinopril, Lasix, metformin Slowly improving Continue PT OT while hospitalized Possible sepsis Leukopenia, thrombocytopenia Febrile neutropenia Suspected tickborne illness Lyme screen negative Peripheral smear showed no signs of intracytoplasmic inclusions Tickborne serology pending Chest x-ray, UA not suggestive of infection -- Blood cultures: No growth to date Neutropenic precaution Empirically on doxycycline, added Zosyn Monitor CBC Hypertension Hold lisinopril due to MAAME Continue metoprolol Monitor blood pressure DM Type II: Will hold oral diabetic meds Last A1c: 7.9 Continue insulin while hospitalized Monitor blood glucose levels Hyperlipidemia Hold statin due to rhabdo COPD No signs of exacerbation Continue home inhalers Other chronic conditions Nonobstructive CAD Second-degree AV Mobitz type I block MASLD, no overt decompensation Bladder cancer S/P Surgery Past tobacco abuse Continue home medications as able DVT Px: SCDs Re: Thrombocytopenia Code Status Full code Admission and Anticipated Discharge Date Admission Date: March 23, 2025 Subjective Patient is seen and examined at bedside States feeling better today Generalized weakness, balance issues improving Offers no specific complaints today Denies any chest pain, dyspnea, nausea, vomiting, abdominal pain Review of Systems Review of Systems: All systems reviewed & are unremarkable except as noted in Subjective Physical Exam Physical Exam: Physical Exam: Vitals signs as noted above General Appearance:Obese, no apparent distress Head: normocephalic, Atraumatic Eyes: normal inspection, EOMI Neck: supple, Trachea midline Respiratory/Chest: Normal breath sounds, CTA, No accessory muscle use Cardiovascular: S1, S2, No murmur Abdomen/GI:Soft, Non tender, +Protuberant, Bowel sounds present Extremities/Musculoskeletal:normal inspection, 1+ LE edema Neurologic/Psych:AAOX3, grossly no focal neurological deficits Skin: normal color, warm Results & Data Results & Data Vital Signs (Past 12 Hours) Vital Signs Temp Pulse Pulse Resp BP Pulse Ox O2 Del Method 03/24/25 11:05 36.7 C 90 19 151/93 H 95 Room Air 03/24/25 08:00 83 Laboratory Results Short CBC 03/24/25 Range/Units 06:26 WBC 1.77 L (4.8-10.8) K/ul Hgb 11.3 L (14.0-18.0) g/dl Hct 33.8 L (42.0-52.0) % Plt Count 100 L (130-400) K/uL BMP 03/24/25 06:26 Sodium 135 L Potassium 3.7 Chloride 103 Carbon Dioxide 24 BUN 20 Creatinine 1.01 D Glucose 139 H Calcium 8.2 L Cardiac Enzymes 03/24/25 Range/Units 06:26 Total Creatine Kinase 1946 H (30-223) U/L Liver Function 03/24/25 Range/Units 06:26 Total Bilirubin 0.7 (0.2-1.0) mg/dl AST 76 H (13-39) U/L ALT 45 (7-52) U/L Alkaline Phosphatase 52 (34-104) U/L Albumin 3.3 L (3.4-5.0) gm/dl
[2025-03-24] MEDS: PIPERACILLIN/TAZOBACTAM 4.5 GM/100 ML BAG IV STA (16:42)
[2025-03-24] MEDS: PIPERACILLIN/TAZOBACTAM 4.5 GM/100 ML BAG IV SCH (21:26)
[2025-03-25 06:52] LABS: Hematocrit (blood only) 34.4 % (42.0-52.0); Hemoglobin 11.9 g/dl (14.0-18.0); Mean Corpuscular Hemoglobin 28.7 pg (25.0-34.0); Mean Corpuscular Volume 82.9 fL (80.0-100.0); Platelet Count 133 K/uL (130-400); RDW Standard Deviation 40.7 fL (36.4-46.3); Red Blood Count 4.15 M/uL (4.70-6.10); White Blood Count 2.43 K/ul (4.8-10.8)
[2025-03-25 07:40] LABS: Anion Gap 9.0 (3-11); Blood Urea Nitrogen 17.0 mg/dl (6-23); Calcium 8.8 mg/dl (8.6-10.3); Carbon Dioxide 26.0 mmol/L (21-32); Chloride 103.0 mmol/L (98-107); Creatine Kinase 1810.0 U/L (30-223); Creatinine Clr Calc Pharmacy 92.9 ml/min; Glucose 135.0 mg/dl (70-99(Fasting)); Potassium 4.1 mmol/L (3.5-5.1); Sodium 138.0 mmol/L (136-145)
[2025-03-25 09:39] LABS: Immature Granulocytes # (auto) 0.01 K/uL (0.01-0.20); Immature Granulocytes % (auto) 0.4 %
[2025-03-25] MEDS: LACTATED RINGER'S 1,000 ML IV SCH (10:57)
--- NOTE | 2025-03-25 15:15 | Hospitalist Progress Note ---
Date of Service March 25, 2025 Assessment & Plan (1) Severe sepsis: Plan: Acute rhabdomyolysis Acute kidney injury due to above Generalized weakness --CK:2335 -- Baseline creatinine 1.0 --Cr: 1.4>1.3>1.0 Hold statin Continue IV fluids for now Monitor CK levels:[id number] PT OT, fall precautions Monitor renal function Avoid nephrotoxic agents as able Hold lisinopril, Lasix, metformin Encouraged to increase oral fluid intake Continue PT OT while hospitalized Likely plan to discharge in 1 to 2 days Possible sepsis Leukopenia, thrombocytopenia Febrile neutropenia Suspected tickborne illness Lyme screen negative Peripheral smear showed no signs of intracytoplasmic inclusions Tickborne serology pending Chest x-ray, UA not suggestive of infection -- Blood cultures: No growth to date Neutropenic precaution Empirically on doxycycline, added Zosyn Monitor CBC Neutropenia slowly improving Hypertension Hold lisinopril due to MAAME Continue metoprolol Monitor blood pressure DM Type II: Will hold oral diabetic meds Last A1c: 7.9 Continue insulin while hospitalized Monitor blood glucose levels Hyperlipidemia Hold statin due to rhabdo COPD No signs of exacerbation Continue home inhalers Other chronic conditions Nonobstructive CAD Second-degree AV Mobitz type I block MASLD, no overt decompensation Bladder cancer S/P Surgery Past tobacco abuse Continue home medications as able DVT Px: SCDs Re: Thrombocytopenia Code Status Full code Admission and Anticipated Discharge Date Admission Date: March 23, 2025 Subjective Patient is seen and examined at bedside No new complaints CK level still elevated Weakness improving Denies any chest pain, dyspnea, nausea, vomiting, abdominal pain No new complaints Review of Systems Review of Systems: All systems reviewed & are unremarkable except as noted in Subjective Physical Exam Physical Exam: Physical Exam: Vitals signs as noted above General Appearance:Obese, no apparent distress Head: normocephalic, Atraumatic Eyes: normal inspection, EOMI Neck: supple, Trachea midline Respiratory/Chest: Normal breath sounds, CTA, No accessory muscle use Cardiovascular: S1, S2, No murmur Abdomen/GI:Soft, Non tender, +Protuberant, Bowel sounds present Extremities/Musculoskeletal:normal inspection, 1+ LE edema Neurologic/Psych:AAOX3, grossly no focal neurological deficits Skin: normal color, warm Results & Data Results & Data Vital Signs (Past 12 Hours) Vital Signs Temp Pulse Pulse Resp BP BP Pulse Ox 03/25/25 12:48 36.3 C L 78 18 145/86 H 98 03/25/25 08:19 36.4 C 81 16 128/79 95 03/25/25 07:09 75 O2 Del Method 03/25/25 12:48 Room Air 03/25/25 08:19 Room Air 03/25/25 07:09 Laboratory Results Short CBC 03/25/25 Range/Units 06:07 WBC 2.43 L (4.8-10.8) K/ul Hgb 11.9 L (14.0-18.0) g/dl Hct 34.4 L (42.0-52.0) % Plt Count 133 (130-400) K/uL BMP 03/25/25 06:07 Sodium 138 Potassium 4.1 Chloride 103 Carbon Dioxide 26 BUN 17 Creatinine 0.98 Glucose 135 H Calcium 8.8 Cardiac Enzymes 03/25/25 Range/Units 06:07 Total Creatine Kinase 1810 H (30-223) U/L
[2025-03-26 07:45] LABS: Hematocrit (blood only) 35.2 % (42.0-52.0); Hemoglobin 11.7 g/dl (14.0-18.0); Mean Corpuscular Hemoglobin 28.2 pg (25.0-34.0); Mean Corpuscular Volume 84.8 fL (80.0-100.0); Platelet Count 151 K/uL (130-400); RDW Standard Deviation 42.0 fL (36.4-46.3); Red Blood Count 4.15 M/uL (4.70-6.10); White Blood Count 2.69 K/ul (4.8-10.8)
[2025-03-26 07:59] LABS: Anion Gap 6.0 (3-11); Blood Urea Nitrogen 15.0 mg/dl (6-23); Calcium 9.1 mg/dl (8.6-10.3); Carbon Dioxide 28.0 mmol/L (21-32); Chloride 104.0 mmol/L (98-107); Creatine Kinase 1260.0 U/L (30-223); Creatinine Clr Calc Pharmacy 89.3 ml/min; Glucose 136.0 mg/dl (70-99(Fasting)); Potassium 4.2 mmol/L (3.5-5.1); Sodium 138.0 mmol/L (136-145)
[2025-03-26 08:29] LABS: Polychromasia 1+
[2025-03-26 08:32] LABS: Immature Granulocytes # (auto) 0.02 K/uL (0.01-0.20); Immature Granulocytes % (auto) 0.7 %
--- NOTE | 2025-03-26 11:45 | Cardiology Consultation ---
Date of Consultation March 26, 2025 Assessment & Plan (1) Second degree AV block, Mobitz type I: (2) Acute on chronic heart failure with preserved ejection fraction (HFpEF): (3) Generalized weakness: (4) HTN, goal below 140/80: Plan 70 year old male with past medical history of HFpEF, second degree AV block, Mobitz type 1, HTN, DM 2, nonobstructive CAD, nonalcoholic fatty liver disease, untreated MEHREEN, hx bladder cancer s/p resection, who presented to ED 03/22 after fall and generalized weakness. Admitted with acute rhabdomyolysis. - cardiology consulted due to second degree AV block, telemetry reviewed which shows second degree AV block, type 1, nonconducted PACs, has been asymptomatic - Lyme and anaplasmosis negative - discussed with patient if he becomes symptomatic or heart block progresses he may require pacemaker, no indication at this time - appears hypervolemic on exam - would be cautious with IV fluids given HFpEF, consider nephrology referral - continue to monitor on telemetry - stop metoprolol, hold rosuvastatin due to elevated CPK - continue aspirin - recommended outpatient repeat sleep study, consider CPAP, he is currently refusing further workup - outpatient cardiology follow up Case discussed with attending physician, further recommendations per Dr. Jimenes. I spent a total of 45 minutes on the date of service in preparation, delivery, and documentation of the care provided to this patient excluding any time spent in the performance of separately billed services. This visit was a split-shared visit with the substantial portion of the decision making performed by the supervising manager vehicle/billing provider. Leonor Mcneill PA-C [facility] Cardiology Supervising Physician Co-Signing Physician Notes I spent a total of 55 minutes on the date of service in preparation, delivery, and documentation of the care provided to this patient, excluding any time spent in the performance of separately billed services. I have personally performed a history and physical examination on the patient. I have reviewed the advance practitioner's documentation, and I agree with, and take responsibility for the plan of care. Patient Telemetry reviewed which showed episodes of Mobitz type I and possible block PACs versus short duration of type II AV block. Patient asymptomatic. Will discontinue metoprolol. May need further workup for obstructive sleep apnea. Continue to monitor on telemetry. Echocardiogram shows preserved left ventricular ejection fraction. History of Present Illness Reason for Consultation: AV block Mobitz Type II Requesting Physician: Marisol garvinist Attending Physician: Mt Van MD History of Present Illness 70 year old male with past medical history of HFpEF, second degree AV block, Mobitz type 1, HTN, DM 2, nonobstructive CAD, nonalcoholic fatty liver disease, untreated MEHREEN, hx bladder cancer s/p resection, who presented to ED 03/22 after fall. States over the past few weeks he has been very weak, difficulty getting in and out of car. A few days ago, lost his balance and fell onto ground. Denies loss of consciousness. He tried to get up, but was unable to, was on ground for at least an hour. A family member tried to help him up, but they were unable, so called 911. EKG on arrival with sinus tachycardia with 1st degree AV block. Troponin negative. CPK elevated. Labs with neutropenia. Received IV fluids yesterday. Overnight and this morning on telemetry, had second degree AV block, type 1 vs type 2, was asymptomatic. On exam today, he states he is feeling better. Legs are still sore and has edema. Notes he saw outpatient cardiology in January due to shortness of breath, edema, was started on furosemide daily, but has not seen any improvement since. Denies chest pain, palpitations, lightheadedness. History of tobacco and alcohol use, but quit more than 15 years ago. Denies illicit drug use. Lives alone. States he has poor diet, eats all day long. Does not sleep well. Has been told he has mild MEHREEN in past, but it was his choice whether to wear CPAP, he declined and has no interest in starting. Allergies Allergy/AdvReac Type Severity Reaction Status Date / Time empagliflozin Allergy Mild Rash Verified 03/23/25 06:12 [From Jardiance] Iodinated Contrast Media Allergy Mild Rash Verified 03/23/25 12:18 piroxicam AdvReac Mild Diarrhea Verified 03/23/25 06:12 Home Medications Medication Instructions Recorded Confirmed Type albuterol sulfate 90 mcg/actuation 2 puff inhalation Q6H PRN 03/23/25 03/23/25 History aerosol inhaler Shortness Of Breath Or Wheezing aspirin 81 mg PO DAILY 03/23/25 03/23/25 History budesonide-formoterol HFA 160 2 puff inhalation AMHS 03/23/25 03/23/25 History mcg-4.5 mcg/actuation aerosol inhaler furosemide 40 mg tablet 40 mg DAILY 03/23/25 03/23/25 History linagliptin 5 mg PO DAILY 03/23/25 03/23/25 History lisinopril 40 mg tablet 40 mg PO DAILY 03/23/25 03/23/25 History metformin 500 mg tablet,extended 1,000 mg PO BID 03/23/25 03/23/25 History release 24 hr metoprolol tartrate 25 mg tablet 12.5 mg PO BID 03/23/25 03/23/25 History potassium chloride 10 mEq 10 meq PO 3XWK 03/23/25 03/23/25 History tablet,extended release rosuvastatin 20 mg tablet 20 mg PO DAILY 03/23/25 03/23/25 History Patient History Medical History Hypertension Social History Smoking Status: Former smoker Hx Alcohol Use: No Hx Substance Use: Yes Preferred Language: [place] Communication Ability: Effective Mold Cooler Required: No Beliefs That Will Affect Care: None Current Living Situation: Alone Feels Safe at Home: Yes Safety Concerns: Feels Safe At This Time Assistive Devices: Cane Review of Systems Review of Systems: CONSTITUTIONAL: No change in weight, + weakness, No fatigue and No fevers, No sweats or chills. PULMONARY: No cough, sputum, or hemoptysis, No wheezing, No shortness of breath and No recent change in breathing. CARDIOVASCULAR: No chest pain, + dyspnea on exertion, + edema, No palpitations and No syncope. GASTROINTESTINAL: No abdominal pain, No change in bowel habits, No significant heartburn, No nausea, No vomiting, No diarrhea, No constipation, No blood in stools or black tarry stools. No dysphagia. HEMATOLOGIC: No abnormal bleeding and No bruising. NEUROLOGICAL: Normal balance, No headaches and No weakness. Physical Exam Physical Exam: General: No acute distress. A+Ox3. HEENT: Normocephalic. Atraumatic. PERRL. EOMI. Conjunctiva and sclera clear. NECK: No carotid bruits. No JVD. Carotid upstrokes are brisk. Heart: RRR. S1 and S2 noted. No murmur. No rubs or gallops. PMI non displaced. Lungs: Clear to auscultation. No wheezes. No rhonchi. No rales. Abdomen: Distended. Normal bowel sounds. Nontender. No masses or organomegaly. Extremities: 2+ BLE edema. No clubbing or cyanosis. NEURO: No focal deficits. PSYCH: Appropriate affect and insight. Results & Data Vital Signs (Past 12 Hours) Vital Signs Temp Pulse Pulse Resp BP BP Pulse Ox 03/26/25 07:53 36.4 C L 68 18 137/87 95 03/26/25 07:00 58 L 03/26/25 02:05 36.3 C L 62 18 139/85 95 O2 Del Method 03/26/25 07:53 Room Air 03/26/25 07:00 03/26/25 02:05 Room Air Laboratory Results CBC 03/26/25 Range/Units 06:57 WBC 2.69 L (4.8-10.8) K/ul RBC 4.15 L (4.70-6.10) M/uL Hgb 11.7 L (14.0-18.0) g/dl Hct 35.2 L (42.0-52.0) % Plt Count 151 (130-400) K/uL Neut # (Auto) 0.99 L* (1.40-6.50) K/uL Lymph # (Auto) 1.32 (1.20-3.40) K/uL Sequoyah # (Auto) 0.25 (0.11-0.59) K/uL Eos # (Auto) 0.09 (0.00-0.50) K/uL Baso # (Auto) 0.02 (0.00-0.20) K/uL Comprehensive Metabolic Panel 03/26/25 Range/Units 06:57 Sodium 138 (136-145) mmol/L Potassium 4.2 (3.5-5.1) mmol/L Chloride 104 (98-107) mmol/L Carbon Dioxide 28 (21-32) mmol/L BUN 15 (6-23) mg/dl Creatinine 1.02 (0.6-1.4) mg/dl Glucose 136 H (70-99(Fasting)) mg/dl Calcium 9.1 (8.6-10.3) mg/dl Intake and Output 03/25/25 03/26/25 03/26/25 23:59 06:59 14:59 Intake Total 100 / 100 Output Total Balance 100 / 100 Intake: IV 100 / 100 Lactated Ringer's 1,000 ml @ 125 mls/hr IV .Q8H SOO Rx#: [id number] Piperacillin/Tazobactam 4.5 gm 100 / 100 In 100 ml @ 25 mls/hr IV Q8H SOO Rx#:[id number] Oral Output: Urine # Bowel Movements Other: # Unmeasured Voids Weight Weight Measurement Method Diagnostic Findings EKG 03/26/25: sinus rhythm with 1st degree AV block, 62 bpm EKG 03/22/25: sinus tachycardia with 1st degree AV block, 112 bpm Echo 01/12/25 ([facility]): LVEF 55-59%, no significant valvular disease Zio 12/2023 with sinus rhythm with rare ectopy, second degree AV block, type 1 PG Care Time/CCT Total # of Minutes Spent Total Time Spent with Patient: Total time spent is greater than 50% in coordination of care (as documented) at patient's floor/unit and/or counseling patient: [place] [address] IN/OBS CONSULT LVL 5,80M Patient Type New Medical Decision Making High Complexity Diagnoses Second degree AV block, Mobitz type I I44.1 Acute on chronic heart failure with preserved ejection fraction (HFpEF) I50.33 Generalized weakness R53.1 HTN, goal below 140/80 I10
--- NOTE | 2025-03-26 13:30 | XCELERA ---
[id number] \\[email or web address]\[id number]\[id number]___[id number]
--- NOTE | 2025-03-26 15:35 | Hospitalist Progress Note ---
Date of Service March 26, 2025 Assessment & Plan (1) Severe sepsis: Plan: Acute rhabdomyolysis Acute kidney injury due to above Generalized weakness --CK:2335 -- Baseline creatinine 1.0 --Cr: 1.4>1.3>1.0 Hold statin Continue IV fluids for now Monitor CK levels:2335>1946>1810>1260 PT OT, fall precautions Monitor renal function Avoid nephrotoxic agents as able Hold lisinopril, Lasix, metformin Encouraged to increase oral fluid intake Continue PT OT Patient prefers to be discharged to rehab facility if qualifies Possible sepsis Leukopenia, thrombocytopenia Febrile neutropenia Suspected tickborne illness Lyme screen negative Peripheral smear showed no signs of intracytoplasmic inclusions Tickborne serology pending Chest x-ray, UA not suggestive of infection -- Blood cultures: No growth to date Neutropenic precaution Empirically on doxycycline, added Zosyn Monitor CBC Neutropenia, thrombocytopenia improving Second-degree AV Mobitz type I block Suspected blocked PACs Vs transient type II AV block --ECHO: EF 50 to 55%. Right ventricle cavity size is normal. Right ventricular systolic function is normal. Mild aortic regurgitation. Mild mitral regurgitation. Metoprolol discontinued Appreciate cardiology input Recommend sleep study as outpatient Hypertension Plan to resume lisinopril as able Metoprolol discontinued as above Monitor blood pressure DM Type II: Will hold oral diabetic meds Last A1c: 7.9 Continue insulin while hospitalized Monitor blood glucose levels Hyperlipidemia Hold statin due to rhabdo COPD No signs of exacerbation Continue home inhalers Other chronic conditions Nonobstructive CAD MASLD, no overt decompensation Bladder cancer S/P Surgery Past tobacco abuse Continue home medications as able DVT Px: SCDs Heparin SQ Code Status Full code Disposition To be determined Admission and Anticipated Discharge Date Admission Date: March 23, 2025 Subjective Patient is seen and examined at bedside Was noted to have transient type II AV block on monitor Patient denies any nausea, palpitations, admits to having minimal dizziness with ambulation States having some bilateral leg soreness CK levels trending down Denies any chest pain, dyspnea, nausea, vomiting, abdominal pain Review of Systems Review of Systems: All systems reviewed & are unremarkable except as noted in Subjective Physical Exam Physical Exam: Physical Exam: Vitals signs as noted above General Appearance:Obese, no apparent distress Head: normocephalic, Atraumatic Eyes: normal inspection, EOMI Neck: supple, Trachea midline Respiratory/Chest: Normal breath sounds, CTA, No accessory muscle use Cardiovascular: S1, S2, No murmur Abdomen/GI:Soft, Non tender, +Protuberant, Bowel sounds present Extremities/Musculoskeletal:normal inspection, 1+ LE edema Neurologic/Psych:AAOX3, grossly no focal neurological deficits Skin: normal color, warm Results & Data Results & Data Vital Signs (Past 12 Hours) Vital Signs Temp Pulse Pulse Resp BP Pulse Ox O2 Del Method 03/26/25 11:55 36.4 C 78 18 143/75 H 97 Room Air 03/26/25 07:53 36.4 C L 68 18 137/87 95 Room Air 03/26/25 07:00 58 L Laboratory Results Short CBC 03/26/25 Range/Units 06:57 WBC 2.69 L (4.8-10.8) K/ul Hgb 11.7 L (14.0-18.0) g/dl Hct 35.2 L (42.0-52.0) % Plt Count 151 (130-400) K/uL BMP 03/26/25 06:57 Sodium 138 Potassium 4.2 Chloride 104 Carbon Dioxide 28 BUN 15 Creatinine 1.02 Glucose 136 H Calcium 9.1 Cardiac Enzymes 03/26/25 Range/Units 06:57 Total Creatine Kinase 1260 H (30-223) U/L
[2025-03-26] MEDS: LACTATED RINGER'S 1,000 ML IV ONE (16:19)
[2025-03-26] MEDS ORDERED: ATROPINE SULFATE 0.1 MG/ML 10ML SYR IV PRN (20:46)
--- NOTE | 2025-03-26 20:47 | Communication Note ---
Date of Service: March 26, 2025 Notified by RN of persistent bradycardia. Heart rate 30 to 40s with blocks more frequent as per RN. SBP 130s Patient asymptomatic EKG as per my interpretation : Rate 55, normal axis, second-degree AV block Mobitz type II, no ischemia AP 2 AVB, Mobitz type II Will ask morning provider to review EKG and overnight telemetry N.p.o. in anticipation of PPM
[2025-03-26 21:21] LABS: Magnesium 2.0 mg/dl (1.7-2.4)
[2025-03-26] MEDS: HEPARIN SOD 5,000 UNIT/0.5 ML VIAL SQ SCH (21:22)
[2025-03-26] MEDS ORDERED: MELATONIN 3 MG TAB PO PRN (23:21)
--- NOTE | 2025-03-27 05:47 | Electrocardiogram Report ---
Test Reason : Blood Pressure : */* mmHG Vent. Rate : 62 BPM Atrial Rate : 62 BPM P-R Int : 232 ms QRS Dur : 88 ms QT Int : 444 ms P-R-T Axes : -1 -4 14 degrees QTcB Int : 450 ms Sinus rhythm with 1st degree A-V block Inferior infarct (cited on or before 22-Mar-2025) Abnormal ECG When compared with ECG of 22-Mar-2025 21:29, Vent. rate has decreased by 50 bpm Confirmed by Evert Smith ([id number]) on 03/27/2025 5:47:26 AM Referred By: REFERRED SELF Confirmed By: Evert Smith
--- NOTE | 2025-03-27 08:46 | Cardiology Progress Note ---
Date of Service March 27, 2025 Assessment & Plan (1) Second degree AV block, Mobitz type I: (2) Acute on chronic heart failure with preserved ejection fraction (HFpEF): (3) Generalized weakness: (4) HTN, goal below 140/80: Plan 70 year old male with past medical history of HFpEF, second degree AV block, Mobitz type 1, HTN, DM 2, nonobstructive CAD, nonalcoholic fatty liver disease, untreated MEHREEN, hx bladder cancer s/p resection, who presented to ED 03/22 after fall and generalized weakness. Admitted with acute rhabdomyolysis. Plan 03/27/2025: -Patient is resting comfortably in bed, asymptomatic at time of visit. -Review of telemetry continues to show Second degree AV block, type I -Beta blockers and any other AV annmarie blocking agents should be avoided at this time. -Initial lyme and anaplasmosis testing negative, western blot pending in addition to other serology. labs suggest patient is having a positive response to IV doxycycline. -No indication for pacemaker at this time. Will continue to monitor on telemetry overnight. -Crestor remains on hold due to elevated CPK at time of admission. -Patient will need arranged for a sleep study upon discharge, would also recommend protracted cardiac monitoring outpatient with a zio monitor and then cardiology follow up following zio results. Case has been discussed with Dr. Araujo. Further recommendations regarding plan of care as per his assessment. I spent a total of 40 minutes on the date of service in preparation, delivery, documentation of the care provided to the patient excluding any time spent in the performance of separately billed services. MIRACLE Christianson [facility] Cardiology [facility] Admission and Anticipated Discharge Date Admission Date: March 23, 2025 Supervising Physician Co-Signing Physician Notes Attending attestation: Case reviewed with the advanced practitioner. I have personally performed a history and physical examination on the patient. I have reviewed the advanced practitioner's documentation on the date of service referenced in note, and I agree with, and take responsibility for the plan of care. Subjective: Patient describes 1 week illness of feeling generalized weakness with no strength in his arms and legs. He describes generalized weakness prompting his fall rather than definite syncope. Exam: Cardiovascular: Regular rate with occasional irregularity, no murmurs, 1-2+ lower extremity edema with chronic venous stasis changes Pulmonary: Mildly decreased breath sounds in the bases. Neurologic: No focal deficits Data: Telemetry reviewed with findings of the frequent episodes of Mobitz type I second-degree AV block (Wenckebach block, with ventricular rates in the 40s to 60s. A Zio patch have been worn in December, for evaluation of other symptoms. The patient wore the monitor for 7 days in 20 oh hours. The predominant rhythm at that time was sinus rhythm with average rate of 84 bpm. Occasional episodes of Mobitz type I second-degree AV block with ventricular rate as low as 28 bpm observed during anticipated waking hours and sleep. No patient triggered events were submitted and no symptoms were associated with arrhythmias at that time. Impression/ Plan: -Mobitz type I second-degree AV block with bradycardia - I am not certain however that the patient's symptoms are due to his slow heart rates in the setting of ongoing concerns of sepsis, I would favor ongoing observation off of antibiotic therapy (metoprolol 12.5 mg twice daily stopped). Riki Araujo, Subjective 03/27/2025: Patient seen and examined in follow up today. Feeling fair. Remains in neutropenic precautions. Denies any chest pain, pressure, palpitations, no shortness of breath, PND, pre-syncope, syncope or edema. Labs, vitals, diagnostics, telemetry and documentation reviewed. Telemetry reviewed showing SB/SR rates 40-60's overnight. Review of telemetry shows evidence of Mobitz I, Wenckebach. Reviewed EKG with Dr. Araujo dated 03/26/25 at 20: 49. The computer interpretation is suggesting Mobitz II; however further examination of the study does show a progressive lengthening of SC with a dropped complex consistent with type I. CBC showing improvement with receipt of IV doxycycline. Western blot and further serology still pending. Lopressor remains on hold. Review of Systems Review of Systems: All systems reviewed & are unremarkable except as noted in HPI & below Physical Exam Constitutional: well developed, well nourished and + overweight Neck: normal visual inspection and trachea midline Respiratory: normal respiratory effort Cardiovascular: Rate/Rhythm: + bradycardic Heart Sounds: normal S1 and normal S2; no murmur Vessels: dorsalis pedis pulses present; no JVD Extremities: + edema (Trace BLE) Skin: no rashes, warm and dry Results & Data Vital Signs (Past 12 Hours) Vital Signs Temp Pulse Pulse Resp BP Pulse Ox O2 Del Method 03/27/25 08:33 36.6 C 64 17 149/87 H 97 Room Air 03/27/25 07:28 Room Air 03/27/25 07:15 51 L 03/27/25 02:51 36.5 C 50 L 16 119/64 98 Room Air 03/27/25 01:30 123/73 03/26/25 22:25 36.4 C 40 L 18 113/65 96 Room Air 03/26/25 21:46 43 L Laboratory Results CBC 03/27/25 Range/Units 09:58 WBC 3.37 L (4.8-10.8) K/ul RBC 4.50 L (4.70-6.10) M/uL Hgb 13.1 L (14.0-18.0) g/dl Hct 38.1 L (42.0-52.0) % Plt Count 216 (130-400) K/uL Neut # (Auto) 1.72 (1.40-6.50) K/uL Lymph # (Auto) 1.20 (1.20-3.40) K/uL Cocke # (Auto) 0.29 (0.11-0.59) K/uL Eos # (Auto) 0.08 (0.00-0.50) K/uL Baso # (Auto) 0.03 (0.00-0.20) K/uL Intake and Output 03/26/25 03/27/25 03/27/25 22:59 06:59 14:59 Intake Total 540 / 2960 1340 / 2960 100 / 100 Output Total 900 / 900 Balance -360 / 0 1340 / 2060 100 / 100 Intake: IV 100 / 1300 1100 / 1300 100 / 100 Lactated Ringer's 1,000 ml @ 80 1000 / 1000 mls/hr IV .[id number] ONE Rx#: [id number] Piperacillin/Tazobactam 4.5 gm 100 / 300 100 / 300 100 / 100 In 100 ml @ 25 mls/hr IV Q8H SOO Rx#:[id number] Oral 440 / 1660 240 / 1660 Output: Urine 900 / 900 Other: Weight 124.6 kg Weight Measurement Method Built in [facility] Coding [place] [address] SUB INP/OBS CARE 3/50MIN Patient Type Established History Comprehensive Exam Comprehensive Medical Decision Making High Complexity Diagnoses Second degree AV block, Mobitz type I I44.1 Acute on chronic heart failure with preserved ejection fraction (HFpEF) I50.33 Generalized weakness R53.1 HTN, goal below 140/80 I10
[2025-03-27 10:44] LABS: Hematocrit (blood only) 38.1 % (42.0-52.0); Hemoglobin 13.1 g/dl (14.0-18.0); Immature Granulocytes # (auto) 0.05 K/uL (0.01-0.20); Immature Granulocytes % (auto) 1.5 %; Mean Corpuscular Hemoglobin 29.1 pg (25.0-34.0); Mean Corpuscular Volume 84.7 fL (80.0-100.0); Platelet Count 216 K/uL (130-400); RDW Standard Deviation 41.8 fL (36.4-46.3); Red Blood Count 4.50 M/uL (4.70-6.10); White Blood Count 3.37 K/ul (4.8-10.8)
[2025-03-27 11:40] LABS: Anion Gap 10.0 (3-11); Blood Urea Nitrogen 12.0 mg/dl (6-23); Calcium 9.8 mg/dl (8.6-10.3); Carbon Dioxide 27.0 mmol/L (21-32); Chloride 102.0 mmol/L (98-107); Creatine Kinase 1045.0 U/L (30-223); Creatinine Clr Calc Pharmacy 81.3 ml/min; Glucose 126.0 mg/dl (70-99(Fasting)); Magnesium 2.1 mg/dl (1.7-2.4); Potassium 3.9 mmol/L (3.5-5.1); Sodium 139.0 mmol/L (136-145)
--- NOTE | 2025-03-27 11:45 | Electrocardiogram Report ---
Test Reason : Blood Pressure : */* mmHG Vent. Rate : 70 BPM Atrial Rate : 70 BPM P-R Int : 214 ms QRS Dur : 90 ms QT Int : 418 ms P-R-T Axes : 23 -4 17 degrees QTcB Int : 451 ms Sinus rhythm with 1st degree A-V block Possible Inferior infarct (cited on or before 22-Mar-2025) Abnormal ECG When compared with ECG of 26-Mar-2025 01:01, No significant change was found Confirmed by Andrés Young ([id number]) on 03/27/2025 11:44:48 AM Referred By: REFERRED SELF Confirmed By: Andrés Young
--- NOTE | 2025-03-27 11:46 | Electrocardiogram Report ---
Test Reason : Blood Pressure : */* mmHG Vent. Rate : 54 BPM Atrial Rate : 63 BPM P-R Int : * ms QRS Dur : 92 ms QT Int : 450 ms P-R-T Axes : -2 -12 -1 degrees QTcB Int : 426 ms Sinus rhythm with 2nd degree A-V block (Mobitz I) Minimal voltage criteria for LVH, may be normal variant ( R in aVL ) Inferior infarct (cited on or before 22-Mar-2025) Abnormal ECG When compared with ECG of 26-Mar-2025 09:11, (unconfirmed) Sinus rhythm is now with 2nd degree A-V block (Mobitz I) Inverted T waves have replaced nonspecific T wave abnormality in Inferior leads Confirmed by Andrés Young ([id number]) on 03/27/2025 11:46:14 AM Referred By: REFERRED SELF Confirmed By: Andrés Young
--- NOTE | 2025-03-27 11:53 | Electrocardiogram Report ---
Test Reason : Blood Pressure : */* mmHG Vent. Rate : 53 BPM Atrial Rate : 63 BPM P-R Int : 240 ms QRS Dur : 88 ms QT Int : 482 ms P-R-T Axes : 2 -4 9 degrees QTcB Int : 452 ms Sinus rhythm with 2nd degree A-V block (Mobitz I) Abnormal ECG When compared with ECG of 26-Mar-2025 12:16, (unconfirmed) No significant change Confirmed by Andrés Young ([id number]) on 03/27/2025 11:52:56 AM Referred By: REFERRED SELF Confirmed By: Andrés Young
--- NOTE | 2025-03-27 15:41 | Hospitalist Progress Note ---
Date of Service March 27, 2025 Assessment & Plan (1) Severe sepsis: Plan: Acute rhabdomyolysis Acute kidney injury--resolved Generalized weakness --CK:2335 -- Baseline creatinine 1.0 --Cr: 1.4>1.3>1.0 Hold statin Continue IV fluids for now Monitor CK levels:2335>1946>1810>1045 PT OT, fall precautions Monitor renal function Avoid nephrotoxic agents as able Encouraged to increase oral fluid intake Continue PT OT Patient prefers to be discharged to rehab facility if qualifies Case management to help with discharge planning Possible sepsis Leukopenia, thrombocytopenia Febrile neutropenia--resolved Suspected tickborne illness Lyme screen negative Peripheral smear showed no signs of intracytoplasmic inclusions Tickborne serology pending Chest x-ray, UA not suggestive of infection -- Blood cultures: No growth to date Neutropenic precaution Empirically on doxycycline Will discontinue IV Zosyn and monitor Monitor CBC Neutropenia, thrombocytopenia improved Second-degree AV Mobitz type I block Suspected blocked PACs Vs transient type II AV block --ECHO: EF 50 to 55%. Right ventricle cavity size is normal. Right ventricular systolic function is normal. Mild aortic regurgitation. Mild mitral regurgitation. Metoprolol discontinued Appreciate cardiology input Recommend sleep study as outpatient Also may need ZIO monitor as outpatient Hypertension Resume lisinopril Metoprolol discontinued as above Monitor blood pressure DM Type II: Will hold oral diabetic meds Last A1c: 7.9 Continue insulin while hospitalized Monitor blood glucose levels Hyperlipidemia Hold statin due to rhabdo COPD No signs of exacerbation Continue home inhalers Other chronic conditions Nonobstructive CAD MASLD, no overt decompensation Bladder cancer S/P Surgery Past tobacco abuse Continue home medications as able DVT Px: SCDs Heparin SQ Code Status Full code Disposition May need rehab Admission and Anticipated Discharge Date Admission Date: March 23, 2025 Subjective Patient is seen and examined at bedside Patient was noted to have low heart rate overnight Discussed with cardiology today Patient had no symptoms during bradycardic episodes Reports chronic headache Discussed with patient's family at bedside Denies any chest pain, dyspnea, nausea, vomiting, abdominal pain CK levels continue to improve Review of Systems Review of Systems: All systems reviewed & are unremarkable except as noted in Subjective Physical Exam Physical Exam: Physical Exam: Vitals signs as noted above General Appearance:Obese, no apparent distress Head: normocephalic, Atraumatic Eyes: normal inspection, EOMI Neck: supple, Trachea midline Respiratory/Chest: Normal breath sounds, CTA, No accessory muscle use Cardiovascular: S1, S2, No murmur Abdomen/GI:Soft, Non tender, +Protuberant, Bowel sounds present Extremities/Musculoskeletal:normal inspection, 1+ LE edema Neurologic/Psych:AAOX3, grossly no focal neurological deficits Skin: normal color, warm Results & Data Results & Data Vital Signs (Past 12 Hours) Vital Signs Temp Pulse Pulse Resp BP Pulse Ox O2 Del Method 03/27/25 08:33 36.6 C 64 17 149/87 H 97 Room Air 03/27/25 07:28 Room Air 03/27/25 07:15 51 L Laboratory Results Short CBC 03/27/25 Range/Units 09:58 WBC 3.37 L (4.8-10.8) K/ul Hgb 13.1 L (14.0-18.0) g/dl Hct 38.1 L (42.0-52.0) % Plt Count 216 (130-400) K/uL BMP 03/27/25 09:58 Sodium 139 Potassium 3.9 Chloride 102 Carbon Dioxide 27 BUN 12 Creatinine 1.12 Glucose 126 H Calcium 9.8 Cardiac Enzymes 03/27/25 Range/Units 09:58 Total Creatine Kinase 1045 H (30-223) U/L
[2025-03-27 20:06] VITALS: RESP 18
[2025-03-28 03:45] VITALS: O2SAT 96
[2025-03-28 06:55] LABS: Hematocrit (blood only) 34.4 % (42.0-52.0); Hemoglobin 11.9 g/dl (14.0-18.0); Immature Granulocytes # (auto) 0.06 K/uL (0.01-0.20); Immature Granulocytes % (auto) 1.7 %; Mean Corpuscular Hemoglobin 29.2 pg (25.0-34.0); Mean Corpuscular Volume 84.5 fL (80.0-100.0); Platelet Count 184 K/uL (130-400); RDW Standard Deviation 41.6 fL (36.4-46.3); Red Blood Count 4.07 M/uL (4.70-6.10); White Blood Count 3.45 K/ul (4.8-10.8)
[2025-03-28 07:13] LABS: Anion Gap 8.0 (3-11); Blood Urea Nitrogen 15.0 mg/dl (6-23); Calcium 9.2 mg/dl (8.6-10.3); Carbon Dioxide 26.0 mmol/L (21-32); Chloride 106.0 mmol/L (98-107); Creatinine Clr Calc Pharmacy 90.0 ml/min; Glucose 129.0 mg/dl (70-99(Fasting)); Potassium 4.1 mmol/L (3.5-5.1); Sodium 140.0 mmol/L (136-145)
--- NOTE | 2025-03-28 09:09 | Cardiology Progress Note ---
Date of Service March 28, 2025 Assessment & Plan (1) Second degree AV block, Mobitz type I: (2) Acute on chronic heart failure with preserved ejection fraction (HFpEF): (3) Generalized weakness: (4) HTN, goal below 140/80: Plan 70 year old male with past medical history of HFpEF, second degree AV block, Mobitz type 1, HTN, DM 2, nonobstructive CAD, nonalcoholic fatty liver disease, untreated MEHREEN, hx bladder cancer s/p resection, who presented to ED 03/22 after fall and generalized weakness. Admitted with acute rhabdomyolysis. Plan 03/28/2025: -Patient is resting comfortably sitting up on side of bed, remains asymptomatic -Review of telemetry continues to show Second degree AV block, type I -Beta blockers and any other AV annmarie blocking agents should be avoided at this time. -Initial lyme and anaplasmosis testing negative, western blot pending in addition to other serology. labs suggest patient is having a positive response to IV doxycycline. -No indication for pacemaker at this time. -Crestor remains on hold due to elevated CPK at time of admission. -Patient will need arranged for a sleep study upon discharge, would also recommend protracted cardiac monitoring outpatient with a zio monitor and then cardiology follow up following zio results. Case has been discussed with Dr. Badillo. Further recommendations regarding plan of care as per his assessment. I spent a total of 30 minutes on the date of service in preparation, delivery, documentation of the care provided to the patient excluding any time spent in the performance of separately billed services. MIRACLE Christianson [facility] [employer] Admission and Anticipated Discharge Date Admission Date: March 23, 2025 Supervising Physician Co-Signing Physician Notes Patient was seen and personally examined. Assessment and plan as outlined by advanced provider as above. Discussed and personally endorsed. Patient asymptomatic today ambulatory in room. Recovering from acute illness. Patient presented with sepsis and rhabdomyolysis. During hospitalization transient Mobitz type I second-degree AV block (winky block) no further high-grade block. No indications for pacemaker. Recommendations as above event monitor post hospital discharge suspect patient will require low-dose beta-cortez restarted in future currently will hold. From cardiology standpoint he is stable for discharge if medicine agreeable Subjective 03/28/2025: Patient seen and examined in follow up today. Feeling well from a cardiac perspective. Denies any acute cardiac concerns. No chest pain, pressure palpitations, no shortness of breath, PND, pre-syncope, syncope or edema Labs, vitals, diagnostics, telemetry and documentation reviewed. Telemetry reviewed showing SB/SR rates 50-60's with Mobitz type I. occasional bradycardic rates in the mid to upper 30's during sleep. Physical Exam Constitutional: well developed, well nourished and + overweight Neck: normal visual inspection and trachea midline Respiratory: normal respiratory effort Cardiovascular: Rate/Rhythm: + bradycardic Heart Sounds: normal S1 and normal S2; no murmur Vessels: dorsalis pedis pulses present; no JVD Extremities: + edema (Trace BLE) Skin: no rashes, warm and dry Results & Data Vital Signs (Past 12 Hours) Vital Signs Temp Pulse Pulse Resp BP Pulse Ox O2 Del Method 03/28/25 07:45 71 03/28/25 03:44 36.6 C 68 18 129/77 96 Room Air 03/28/25 00:58 36.3 C L 66 18 137/80 98 Room Air 03/27/25 21:43 49 L Laboratory Results CBC 03/28/25 Range/Units 06:24 WBC 3.45 L (4.8-10.8) K/ul RBC 4.07 L (4.70-6.10) M/uL Hgb 11.9 L (14.0-18.0) g/dl Hct 34.4 L (42.0-52.0) % Plt Count 184 (130-400) K/uL Neut # (Auto) 1.65 (1.40-6.50) K/uL Lymph # (Auto) 1.24 (1.20-3.40) K/uL [place] # (Auto) 0.37 (0.11-0.59) K/uL Eos # (Auto) 0.11 (0.00-0.50) K/uL Baso # (Auto) 0.02 (0.00-0.20) K/uL Comprehensive Metabolic Panel 03/27/25 03/28/25 Range/Units 09:58 06:24 Sodium 139 140 (136-145) mmol/L Potassium 3.9 4.1 (3.5-5.1) mmol/L Chloride 102 106 (98-107) mmol/L Carbon Dioxide 27 26 (21-32) mmol/L BUN 12 15 (6-23) mg/dl Creatinine 1.12 1.01 (0.6-1.4) mg/dl Glucose 126 H 129 H (70-99(Fasting)) mg/dl Calcium 9.8 9.2 (8.6-10.3) mg/dl Intake and Output 03/27/25 03/28/25 03/28/25 22:59 06:59 14:59 Intake Total 480 / 820 Balance 480 / 820 Intake: Oral 480 / 720 Other: Weight 124.2 kg Weight Measurement Method Built in [facility] PG Care Time/CCT Total # of Minutes Spent Total Time Spent with Patient: Total time spent is greater than 50% in coordination of care (as documented) at patient's floor/unit and/or counseling patient: Coding Level of Care Code 50463 SUB INP/OBS CARE 3/50MIN Diagnoses Second degree AV block, Mobitz type I I44.1 Acute on chronic heart failure with preserved ejection fraction (HFpEF) I50.33 Generalized weakness R53.1 HTN, goal below 140/80 I10
--- NOTE | 2025-03-28 10:54 | Hospitalist Progress Note ---
Date of Service March 28, 2025 Assessment & Plan (1) Severe sepsis: Plan: Acute rhabdomyolysis Acute kidney injury--resolved Generalized weakness -- Baseline creatinine 1.0 --Cr: 1.4>1.3>1.0 Hold statin Continue IV fluids for now Monitor CK levels:2335>1946>1810>1045 PT OT, fall precautions Monitor renal function Avoid nephrotoxic agents as able Encouraged to increase oral fluid intake Continue PT OT while hospitalized Plan to discharge home today Possible sepsis Leukopenia, thrombocytopenia-improved- Febrile neutropenia--resolved Suspected tickborne illness Lyme screen negative Peripheral smear showed no signs of intracytoplasmic inclusions Tickborne serology pending Chest x-ray, UA not suggestive of infection -- Blood cultures: No growth to date Neutropenic precaution IV Zosyn discontinued Continue doxycycline Monitor CBC Second-degree AV Mobitz type I block Asymptomatic bradycardia --ECHO: EF 50 to 55%. Right ventricle cavity size is normal. Right ventricular systolic function is normal. Mild aortic regurgitation. Mild mitral regurgitation. Metoprolol discontinued Appreciate cardiology input No indication for pacemaker currently Recommend sleep study as outpatient Also may need ZIO monitor as outpatient Hypertension Continue lisinopril Metoprolol discontinued as above Monitor blood pressure DM Type II: Will hold oral diabetic meds Last A1c: 7.9 Continue insulin while hospitalized Monitor blood glucose levels Hyperlipidemia Hold statin due to rhabdo COPD No signs of exacerbation Continue home inhalers Other chronic conditions Nonobstructive CAD MASLD, no overt decompensation Bladder cancer S/P Surgery Past tobacco abuse Continue home medications as able DVT Px: SCDs Heparin SQ Code Status Full code Disposition Home Admission and Anticipated Discharge Date Admission Date: March 23, 2025 Subjective Patient is seen and examined at bedside States feeling well today Discussed with cardiology Denies any chest pain, palpitations, dyspnea, nausea, vomiting, abdominal pain Plan to discharge home today Review of Systems Review of Systems: All systems reviewed & are unremarkable except as noted in Subjective Physical Exam Physical Exam: Physical Exam: Vitals signs as noted above General Appearance:Obese, no apparent distress Head: normocephalic, Atraumatic Eyes: normal inspection, EOMI Neck: supple, Trachea midline Respiratory/Chest: Normal breath sounds, CTA, No accessory muscle use Cardiovascular: S1, S2, No murmur Abdomen/GI:Soft, Non tender, +Protuberant, Bowel sounds present Extremities/Musculoskeletal:normal inspection, 1+ LE edema Neurologic/Psych:AAOX3, grossly no focal neurological deficits Skin: normal color, warm Results & Data Results & Data Vital Signs (Past 12 Hours) Vital Signs Temp Pulse Pulse Resp BP Pulse Ox O2 Del Method 03/28/25 07:45 71 03/28/25 03:44 36.6 C 68 18 129/77 96 Room Air 03/28/25 00:58 36.3 C L 66 18 137/80 98 Room Air Laboratory Results Short CBC 03/28/25 Range/Units 06:24 WBC 3.45 L (4.8-10.8) K/ul Hgb 11.9 L (14.0-18.0) g/dl Hct 34.4 L (42.0-52.0) % Plt Count 184 (130-400) K/uL BMP 03/27/25 03/28/25 09:58 06:24 Sodium 139 140 Potassium 3.9 4.1 Chloride 102 106 Carbon Dioxide 27 26 BUN 12 15 Creatinine 1.12 1.01 Glucose 126 H 129 H Calcium 9.8 9.2 Cardiac Enzymes 03/27/25 Range/Units 09:58 Total Creatine Kinase 1045 H (30-223) U/L
--- NOTE | 2025-03-28 11:05 | Discharge Summary ---
Date of Service March 28, 2025 Admission HPI Per Admitting Provider History obtained from patient and records. Medical history significant for nonobstructive CAD, second-degree AV Mobitz type I block, hypertension, hyperlipidemia, COPD as per records, mild MEHREEN, MASLD, DM2 on oral medications, bladder cancer status post surgery, Lyme disease status post Rx, GERD, past tobacco abuse. Patient noted worsening bilateral leg weakness over the last few weeks. Not sure about tick bites. Lightheadedness described as dizziness without headache symptoms. Denies chest pain, SOB, cough symptoms, abdominal pain, syncope. No unusual headache or neck or back pain. Patient having trouble standing up for a long time. IV doxycycline administered at the ER. 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 Admission Exam Per Admitting Provider GENERAL: Comfortable, obese, slightly anxious, no respiratory distress SKIN: Normal color, warm HEENT: Alopecia, bespectacled, pink palpebral conjunctivae, no ptosis, dry buccal mucosa NECK : Supple, no tenderness CHEST : CTA, no tenderness HEART : Tachycardic, no obvious murmurs ABDOMEN: Some distention, nontender EXTREMITIES : Bilateral LE swelling without tenderness, crusty wound LLE, palpable pulses, no other conspicuous deformities noted NEUROLOGIC : Coherent, no facial asymmetry, no other gross focality Principal Diagnosis Acute rhabdomyolysis Acute kidney injury Possible sepsis/tickborne illness Leukopenia, thrombocytopenia Second-degree AV Mobitz type I block Asymptomatic bradycardia Discharge Data Allergies Allergy/AdvReac Type Severity Reaction Status Date / Time empagliflozin Allergy Mild Rash Verified 03/23/25 06:12 [From Jardiance] Iodinated Contrast Media Allergy Mild Rash Verified 03/23/25 12:18 piroxicam AdvReac Mild Diarrhea Verified 03/23/25 06:12 Consultations 03/23/25 00:21 ED Decision to Admit Stat 03/26/25 11:01 Consult Cardiology Routine Procedures Performed Laboratory Results WBC 3.45 K/ul (4.8-10.8) L 03/28/25 06:24 RBC 4.07 M/uL (4.70-6.10) L 03/28/25 06:24 Hgb 11.9 g/dl (14.0-18.0) L 03/28/25 06:24 Hct 34.4 % (42.0-52.0) L 03/28/25 06:24 MCV 84.5 fL (80.0-100.0) 03/28/25 06:24 MCH 29.2 pg (25.0-34.0) 03/28/25 06:24 MCHC 34.6 g/dL (32.0-36.0) 03/28/25 06:24 RDW Std Deviation 41.6 fL (36.4-46.3) 03/28/25 06:24 RDW Coeff of Elena 13.5 % (11.5-14.5) 03/28/25 06:24 Plt Count 184 K/uL (130-400) 03/28/25 06:24 MPV 10.4 fL (9.4-12.4) 03/28/25 06:24 Immature Gran % (Auto) 1.7 % 03/28/25 06:24 Neut % (Auto) 47.9 % 03/28/25 06:24 Lymph % (Auto) 35.9 % 03/28/25 06:24 Gove % (Auto) 10.7 % 03/28/25 06:24 Eos % (Auto) 3.2 % 03/28/25 06:24 Baso % (Auto) 0.6 % 03/28/25 06:24 Neut # (Auto) 1.65 K/uL (1.40-6.50) 03/28/25 06:24 Lymph # (Auto) 1.24 K/uL (1.20-3.40) 03/28/25 06:24 Gove # (Auto) 0.37 K/uL (0.11-0.59) 03/28/25 06:24 Eos # (Auto) 0.11 K/uL (0.00-0.50) 03/28/25 06:24 Baso # (Auto) 0.02 K/uL (0.00-0.20) 03/28/25 06:24 Immature Gran # (Auto) 0.06 K/uL (0.01-0.20) 03/28/25 06:24 Polychromasia 1+ 03/26/25 06:57 Echinocytes 1+ 03/23/25 02:09 Peripher Smr Path Cons 03/23/25 02:09 PT 12.2 Seconds (9.0-12.0) H 03/22/25 20:05 INR 1.2 (0.9-1.1) H 03/22/25 20:05 Sodium 140 mmol/L (136-145) 03/28/25 06:24 Potassium 4.1 mmol/L (3.5-5.1) 03/28/25 06:24 Chloride 106 mmol/L (98-107) 03/28/25 06:24 Carbon Dioxide 26 mmol/L (21-32) 03/28/25 06:24 Anion Gap 8 (3-11) 03/28/25 06:24 BUN 15 mg/dl (6-23) 03/28/25 06:24 Creatinine 1.01 mg/dl (0.6-1.4) 03/28/25 06:24 Est Cr Clr Drug Dosing 90.0 ml/min 03/28/25 06:24 eGFR 79.51 03/28/25 06:24 BUN/Creatinine Ratio 14.9 (10-20) 03/28/25 06:24 Glucose 129 mg/dl (70-99(Fasting)) H 03/28/25 06:24 POC Glucose 136 mg/dl (70-99) H 03/28/25 07:49 Osmolality 282 mOsm/kg (280-300) 03/23/25 07:29 Lactate 1.5 mmol/L (0.4-2.0) 03/23/25 02:09 Calcium 9.2 mg/dl (8.6-10.3) 03/28/25 06:24 Phosphorus 3.5 mg/dl (2.5-4.9) 03/22/25 20:05 Magnesium 2.1 mg/dl (1.7-2.4) 03/27/25 09:58 Total Bilirubin 0.7 mg/dl (0.2-1.0) 03/24/25 06:26 AST 76 U/L (13-39) H 03/24/25 06:26 ALT 45 U/L (7-52) 03/24/25 06:26 Alkaline Phosphatase 52 U/L (34-104) 03/24/25 06:26 Total Creatine Kinase 1045 U/L (30-223) H 03/27/25 09:58 Troponin I High Sens 13.7 pg/ml (0-20) 03/22/25 20:05 Total Protein 6.1 gm/dl (6.0-8.3) 03/24/25 06:26 Albumin 3.3 gm/dl (3.4-5.0) L 03/24/25 06:26 Globulin 2.8 gm/dl (2.5-4.0) 03/24/25 06: Albumin/Globulin Ratio 1.2 (0.9-2) 03/24/25 06:26 Lipase 64 U/L (11-82) 03/22/25 20:05 TSH 2.612 uIu/ml (0.300-4.500) 03/22/25 20:05 Urine Color Yellow 03/22/25 22:41 Urine Appearance Clear (Clear) 03/22/25 22: Urine pH 5.0 (4.5-7.5) 03/22/25 22:41 Ur Specific [place] 1.020 (1.000-1.030) 03/22/25 22:41 Urine Protein 1+ (Negative) H 03/22/25 22:41 Urine Glucose (UA) 3+ (Negative) H 03/22/25 22: Urine Ketones 1+ (Negative) H 03/22/25: Urine Blood 2+ (Negative) H 03/22/25: Urine Nitrite Negative (Negative) 03/22/25: Urine Bilirubin Negative (Negative) 03/22/25 22: Urine Urobilinogen Negative (Negative) 03/22/25: Ur Leukocyte Esterase Negative (Negative) 03/22/25 22: Urine WBC (Auto) 0-5 /hpf (0-5) 03/22/25 22:41 Urine RBC (Auto) 0-2 /hpf (0-2) 03/22/25: U Hyaline Cast (Auto) 3-5 /lpf (0-2) H 03/22/25 22: U Epithel Cells (Auto) 0-2 /hpf (0-2) 03/22/25 22:41 Urine Bacteria (Auto) None Seen (None Seen) 03/22/25 22:41 Urine Comment 03/22/25 22: Ethyl Alcohol mg/dL < 10.0 mg/dl (<10.0) 03/22/25 23:19 Anaplasma Smear See Comment 03/22/25 20:05 A. phagocytophilum DNA Positive (Negative) A 03/22/25 23:19 Babesia Smear See Comment 03/22/25 20:05 Babesia microti DNA PCR Not Detected (Not Detected) 03/22/25 23:19 Lyme Disease Screen Negative (Negative) 03/22/25 23:19 Ehrlichia DNA (PCR) Negative (Negative) 03/22/25 23:19 Impressions Chest X-Ray 03/22/25 21:45 Exam(s): XR CXR 1 VIEW EXAM: XR Chest, 1 View CLINICAL HISTORY: Reason for exam: Chest pain, nonspecific. TECHNIQUE: Frontal view of the chest. COMPARISON: No relevant prior studies available. FINDINGS: Lungs: No consolidation. No overt edema. Pleural space: No pleural effusion. No pneumothorax. Heart: Unremarkable. No cardiomegaly. IMPRESSION: No acute cardiopulmonary abnormality. Electronically signed by: Jean Silveira MD 03/22/25 23:22 PM Abdomen/Pelvis CT 03/22/25 23:03 Exam(s): CT ABDOMEN + PELVIS Without Contrast EXAM: CT Abdomen and Pelvis Without Intravenous Contrast CLINICAL HISTORY: Reason for exam: weakness fall. TECHNIQUE: Axial computed tomography images of the abdomen and pelvis without intravenous contrast. CTDI is 35.08 mGy and DLP is 2985.56 mGy-cm. Automated exposure control was utilized for the study. A dose lowering technique was utilized adhering to the principles of ALARA. COMPARISON: No relevant prior studies available. FINDINGS: Lung bases: Unremarkable. No mass. No consolidation. ABDOMEN: Liver: Hepatomegaly. Gallbladder and bile ducts: Unremarkable. No calcified stones. No ductal dilation. Pancreas: Unremarkable. No ductal dilation. Spleen: Splenomegaly. Adrenals: Unremarkable. No mass. Kidneys and ureters: Unremarkable. No obstructing stones. No hydronephrosis. Stomach and bowel: Unremarkable. No obstruction. No mucosal thickening. PELVIS: Appendix: No findings to suggest acute appendicitis. Bladder: Mild distention of the urinary bladder. No stones. Reproductive: Unremarkable as visualized. ABDOMEN and PELVIS: Intraperitoneal space: Unremarkable. No free air. No significant fluid collection. Bones/joints: No acute fracture. No dislocation. Soft tissues: Unremarkable. Vasculature: Unremarkable. No abdominal aortic aneurysm. Lymph nodes: Unremarkable. No enlarged lymph nodes. IMPRESSION: No acute findings in the abdomen or pelvis. Hepatosplenomegaly Electronically signed by: Hector Michael MD 03/23/25 00:[address] 03/22/25 23:03 Exam(s): CT C SPINE EXAM: CT Cervical Spine Without Intravenous Contrast CLINICAL HISTORY: Reason for exam: weakness fall. OTHER: Other Notes: L sided pain, N/V TECHNIQUE: Axial computed tomography images of the cervical spine without intravenous contrast. CTDI is 35.08 mGy and DLP is 2985.56 mGy-cm. Automated exposure control was utilized for the study. A dose lowering technique was utilized adhering to the principles of ALARA. COMPARISON: No relevant prior studies available. FINDINGS: No fracture or subluxations are noted. The vertebral body heights and alignment are preserved. No prevertebral soft tissue swelling. Note is made of multilevel cervical spondylosis with varying degrees of central canal and foramina stenoses. IMPRESSION: 1. No cervical fractures. 2. Cervical spondylosis with varying degrees of central canal and foramina stenoses. Electronically signed by: Hector Michael MD 03/23/25 00:[address] 03/22/25 23:03 Exam(s): CT HEAD Without Contrast EXAM: CT Head Without Intravenous Contrast CLINICAL HISTORY: Reason for exam: weakness fall. TECHNIQUE: Axial computed tomography images of the head/brain without intravenous contrast. CTDI is 35.08 mGy and DLP is 2985.56 mGy-cm. Automated exposure control was utilized for the study. A dose lowering technique was utilized adhering to the principles of ALARA. COMPARISON: No relevant prior studies available. FINDINGS: Brain: Unremarkable. No hemorrhage. No significant white matter disease. No edema. Ventricles: Unremarkable. No ventriculomegaly. Bones/joints: Unremarkable. No acute fracture. Soft tissues: Unremarkable. Sinuses: Unremarkable as visualized. No acute sinusitis. Mastoid air cells: Unremarkable as visualized. No mastoid effusion. IMPRESSION: Normal head/brain CT. Electronically signed by: Hector Michael MD 03/23/25 00:30 AM Knee X-Ray 03/22/25 23:07 Exam(s): XR LEFT KNEE, 3 views EXAM: XR Left Knee, 3 Views CLINICAL HISTORY: Reason for exam: pain fall. TECHNIQUE: Three views of the left knee. COMPARISON: No relevant prior studies available. FINDINGS: Bones/joints: Unremarkable. No acute fracture. No dislocation. Soft tissues: Unremarkable. IMPRESSION: Normal left knee x-rays. Electronically signed by: Hector Michael MD 03/23/25 00:27 AM Ordered Studies 03/22/25 23:03 CT abd pelvis wo con Stat CT cervical spine wo con Stat CT head/brain wo con Stat Hospital Course (1) Severe sepsis: Acute rhabdomyolysis Acute kidney injury--resolved Generalized weakness -- Baseline creatinine 1.0 --Cr: 1.4>1.3>1.0 Hold statin Continue IV fluids for now Monitor CK levels:[id number] PT OT, fall precautions Monitor renal function Avoid nephrotoxic agents as able Encouraged to increase oral fluid intake Continue PT OT while hospitalized Plan to discharge home today Possible sepsis Leukopenia, thrombocytopenia-improved- Febrile neutropenia--resolved Suspected tickborne illness Lyme screen negative Peripheral smear showed no signs of intracytoplasmic inclusions Tickborne serology pending Chest x-ray, UA not suggestive of infection -- Blood cultures: No growth to date Neutropenic precaution IV Zosyn discontinued Continue doxycycline Monitor CBC Second-degree AV Mobitz type I block Asymptomatic bradycardia --ECHO: EF 50 to 55%. Right ventricle cavity size is normal. Right ventricular systolic function is normal. Mild aortic regurgitation. Mild mitral regurgitation. Metoprolol discontinued Appreciate cardiology input No indication for pacemaker currently Recommend sleep study as outpatient Also may need ZIO monitor as outpatient Hypertension Continue lisinopril Metoprolol discontinued as above Monitor blood pressure DM Type II: Will hold oral diabetic meds Last A1c: 7.9 Continue insulin while hospitalized Monitor blood glucose levels Hyperlipidemia Hold statin due to rhabdo COPD No signs of exacerbation Continue home inhalers Other chronic conditions Nonobstructive CAD MASLD, no overt decompensation Bladder cancer S/P Surgery Past tobacco abuse Continue home medications as able DVT Px: SCDs Heparin SQ Code Status Full code Disposition Home Total Time Total Time Spent Total Time Spent (In Minutes): 52 minutes Discharge Plan Discharge Items Patient Disposition: Home - Self-Care Reason For Visit: SEPSIS Discharge Diagnosis: Acute rhabdomyolysis Acute kidney injury Possible sepsis/tickborne illness Leukopenia, thrombocytopenia Second-degree AV Mobitz type I block Asymptomatic bradycardia Condition on Discharge: Fair Activity: Per Instructions section Exercise/Sports: Gradually increase as tolerated Non-emergency contact: Primary Care Provider and [employer] Folder Call non-emergency contact if: you have any medication questions, your symptoms worsen, your pain is concerning for you and you have a fever Follow-up/Referrals: Michael Keenan [Physician Resident Care Aid] - 04/13/25 9:00 am Francia Martínez MD [Primary Care Provider] - Diet: Carb Consistent or DM2 Addtl Attending Provider Instructions: -- Follow-up with your primary care physician Dr. Martínez in 1 week --Follow-up with your autism tutor Michael Keenan PA-C on 04/13/2025 at 9 AM as scheduled -- Complete the antibiotic course doxycycline as prescribed --Recommend to get outpatient sleep study to rule out sleep apnea -- Your autism tutor also recommend ZIO monitoring to rule out arrhythmias as outpatient --Your serological test for Lyme's disease is currently pending at the time of discharge. Follow-up with your physician for results. --Your metoprolol was discontinued as recommended by your autism tutor Seek immediate medical attention if your symptoms reoccur or worsen Please review medication list provided on discharge for any medication changes as instructed. Please call if you have any questions or problems. You can reach a [facility] hospitalist on duty at [facility] 24 hours a day by calling [phone] Pending Studies at Discharge: Yes Studies:: Lyme serology Stand-Alone Forms: [facility], Smoking Cessation Medications and DC Order Prescriptions: New doxycycline hyclate 100 mg Capsule 100 mg PO BID Qty: 10 0RF Continued albuterol sulfate 90 mcg/actuation HFA aerosol inhaler 2 puff INHALATION Q6H PRN (Reason: Shortness Of Breath Or Wheezing) Rx Instructions: pt unable to confirm furosemide 40 mg tablet 40 mg DAILY Rx Instructions: pt unable to confirm potassium chloride 10 mEq tablet extended release 10 meq PO [id number] Rx Instructions: Thursday, thursday, Thursday only lisinopril 40 mg tablet 40 mg PO DAILY Rx Instructions: pt unable to confirm metformin 500 mg tablet extended release 24 hr 1,000 mg PO BID budesonide-formoterol 160-4.5 mcg/actuation HFA aerosol inhaler 2 puff INHALATION [facility] Rx Instructions: pt unable to confirm linagliptin 5 mg PO DAILY aspirin 81 mg PO DAILY Held rosuvastatin 20 mg tablet 20 mg PO DAILY Hold Instructions: Resume on 04/03/25. Discontinued metoprolol tartrate 25 mg tablet 12.5 mg PO BID Discharge Orders: Discharge Order (Routine); Ordered 03/28/25 Ordered By: Mt Van Admission Data Admit Date/Time: 03/23/25 01:42 Attending Provider: Mt Van Admit Provider: Miguel Angel Kaplan Primary Care Provider: Francia Martínez Other Providers: Miguel Angel Kaplan; Gwendolyn Ayala; Riki Araujo; Marques Badillo; Ricco Townsend; Da Church; Michael Keenan; Paradise Rhodes; Indu Madrigal; Natalie Castellanos; Ita Morgan; Gwendolyn Collier; Wai Blake; Brian Jimenes; Kassy Sotomayor; Leonor Mcneill; Alejandrina Meehan; Dennis Martines; Steve Carrizales; Camille Badillo; Yumiko Benitez; Torey Germain; Farrukh Garsia
[2025-03-28 11:11] VITALS: BP 162/92; PULSE 90; TEMP 97.3
== END 2025-03-28 14:45 | disposition home or self-care (01) | DRG 871 ==
LOC: ED 21:14 → 2N 03-23 01:42